=== PATIENT | female | born 1945 | race Caucasian/White ===

== ENCOUNTER 2020-11-27 14:07 | Emergency (ER) | payer MEDICARE ==
[~2020-11-27] VITALS: Ht 167.6 cm; Wt 61.2 kg
--- NOTE | 2020-11-27 14:18 | NUR ---
anny, from [facility], c/o BUE and BLE edema, warm to touch x 2 days. Patient a/ox1, confused, easily agitated. 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
--- NOTE | 2020-11-27 14:30 | NUR ---
DR. CLARKE AT BEDSIDE FOR EVAL
[2020-11-27] MEDS ORDERED: ATOR10TA PO (14:49)
[2020-11-27] MEDS ORDERED: MIDO5TAB4 PO (14:49)
[2020-11-27] MEDS ORDERED: LACT-239 PO (14:49)
[2020-11-27] MEDS ORDERED: ESOM20CA PO (14:49)
[2020-11-27] MEDS ORDERED: MAG30ORA PO (14:49)
[2020-11-27] MEDS ORDERED: DOCU-141 PO (14:49)
[2020-11-27] MEDS ORDERED: MIRT7.5T10 PO (14:49)
[2020-11-27] MEDS ORDERED: MULT-447 PO (14:49)
[2020-11-27] MEDS ORDERED: SULF1TAB48 PO (14:49)
[2020-11-27] MEDS ORDERED: ACID1TAB14 PO (14:49)
[2020-11-27] MEDS ORDERED: LOPE2CAP PO (14:49)
[2020-11-27] MEDS ORDERED: MAGN400O6 PO (14:49)
[2020-11-27] MEDS ORDERED: CHOL100062 PO (14:49)
--- NOTE | 2020-11-27 14:59 | NUR ---
iv line established, blood drawn and sent to lab.
--- NOTE | 2020-11-27 15:00 | NUR ---
graduate intern at bedside for cxr.
[2020-11-27 15:08] LABS: BASOPHILS % (AUTO) 0.1 % (0.0-2.0); EOSINOPHILS % (AUTO) 0.1 % (0.0-6.0); HEMATOCRIT 29 % (33-45); HEMOGLOBIN 9.6 g/dL (11.5-14.8); LYMPHOCYTES # (AUTO) 0.9 /CMM (0.8-4.8); LYMPHOCYTES % (AUTO) 7.9 % (20.0-44.0); MEAN CORPUSCULAR HGB CONC 33 g/dl (31.0-36.0); MEAN CORPUSCULAR VOLUME 94 fL (82-100); MONOCYTES # (AUTO) 1.4 /CMM (0.1-1.30); MONOCYTES % (AUTO) 11.9 % (2.0-12.0); NEUTROPHILS # (AUTO) 9.1 /CMM (1.8-8.9); PLATELET COUNT (AUTO) 372 /CMM (150-450); RED BLOOD CELL COUNT(AUTO) 3.09 MIL/uL (4.0-5.2); WHITE BLOOD COUNT (AUTO) 11.4 K/uL (4.3-11.0)
[2020-11-27 15:19] LABS: CALCIUM, SERUM 8.9 mg/dL (8.5-10.1); CREATININE 0.7 mg/dL (0.6-1.3); POTASSIUM 4.1 mmol/L (3.5-5.1)
[2020-11-27 15:24] LABS: ALBUMIN 2.4 g/dL (3.4-5.0); BILIRUBIN,DIRECT 0.1 mg/dL (0.0-0.2); BILIRUBIN,TOTAL 0.3 mg/dL (0.2-1.0); TOTAL PROTEIN, SERUM 6.6 g/dL (6.4-8.2)
[2020-11-27] MEDS ORDERED: IV NS 0.9% 500 ML BAG IV ONE (15:30)
[2020-11-27] MEDS ORDERED: CEPH250C PO (15:42)
[2020-11-27] MEDS ORDERED: CEPHALEXIN MONOHYDRATE 500 MG CAPSULE PO ONE ×2 (15:45→16:00)
[2020-11-27 15:50] VITALS: BP 135/87
--- NOTE | 2020-11-27 15:52 | NUR ---
CALLED [facility] FOR TRANSPORT TO [facility] [place] 45 MINUTES.
--- NOTE | 2020-11-27 16:07 | NUR ---
REPORT GIVEN TO IVORY LANCE FOR [facility].
--- NOTE | 2020-11-27 17:11 | NUR ---
REPORT GIVEN TO MANAGER SWITCH. PATIENT A/OX1, CONFUSED. IN STABLE CONDITION. IV removed. Catheter intact and site benign. Pressure and 4x4 applied to site. No bleeding noted. Patient discharged to home in stable condition. Written and verbal after care instructions given. Patient verbalizes understanding of instruction.
--- NOTE | 2020-11-27 17:13 | NUR ---
[facility]
== END 2020-11-27 17:13 ==
LOC: ER 14:12
DX: L03.114 Cellulitis of left upper limb (principal); L03.113 Cellulitis of right upper limb; E86.0 Dehydration; D64.9 Anemia, unspecified; F03.90 Unspecified dementia, unspecified severity, without behavioral disturbance, psychotic disturbance, mood disturbance, and anxiety; E78.5 Hyperlipidemia, unspecified; R94.31 Abnormal electrocardiogram [ECG] [EKG]; Z79.899 Other long term (current) drug therapy
CPT/HCPCS: 36415; 71045; 80048; 80076; 83690; 85025; 93005; 99285; J7040

== ENCOUNTER → 2022-05-16 | Emergency (ER) | payer MEDICARE ==
[~2022-05-16] VITALS: Ht 170.2 cm; Wt 63.5 kg
[~2022-05-16] MED LIST: ACID1TAB14 PO; ATOR10TA PO; CEPH250C PO; CHOL100062 PO; DOCU-141 PO; ESOM20CA PO; LACT-239 PO; LOPE2CAP PO; MAG30ORA PO; MAGN400O6 PO; MIDO5TAB4 PO; MIRT7.5T10 PO; MULT-447 PO; SULF1TAB48 PO
--- NOTE | 2022-05-16 07:05 | NUR ---
Recived pt 76 yrs female came from [facility]/p [facility] C/P PAIN ON rt knee no swalleing
--- NOTE | 2022-05-16 08:57 | NUR ---
x ray done at bed side
--- NOTE | 2022-05-16 09:00 | NUR ---
RESTING AND ASLEEPY
--- NOTE | 2022-05-16 10:00 | NUR ---
RESTING AT THIS TIME NO PAIN
--- NOTE | 2022-05-16 11:02 | NUR ---
[facility] CALLED FOR TRANSPORT ETA 60 PER SHEELA.
--- NOTE | 2022-05-16 11:35 | NUR ---
Patient discharged to home in stable condition. Written and verbal after care instructions given. Patient verbalizes understanding of instruction. TRANSFER BACK TO [facility]
[2022-05-16 11:56] VITALS: BP 147/75
== END ==
LOC: ER 07:07
DX: S80.01XA Contusion of right knee, initial encounter (principal); S90.01XA Contusion of right ankle, initial encounter; R51.9 Headache, unspecified; M19.90 Unspecified osteoarthritis, unspecified site; Z86.69 Personal history of other diseases of the nervous system and sense organs; Z79.899 Other long term (current) drug therapy; W06.XXXA Fall from bed, initial encounter; Y93.89 Activity, other specified; Y92.89 Other specified places as the place of occurrence of the external cause; Y99.8 Other external cause status
CPT/HCPCS: 70450-TC; 73564-TC; 73610-TC

== ENCOUNTER 2023-02-02 15:46 | Inpatient (IN) | payer MEDICARE ==
[~2023-02-02] VITALS: Ht 170.2 cm; Wt 59.0 kg
[2023-02-02] MEDS ORDERED: IV NS 0.9% 1,000 ML BAG IV ONE (16:30)
[2023-02-02 16:54] LABS: BASOPHILS % (AUTO) 0.3 % (0.0-2.0); EOSINOPHILS # (AUTO) 0.1 K/uL (0.0-0.7); EOSINOPHILS % (AUTO) 1.1 % (0.0-6.0); HEMATOCRIT 38 % (33-45); HEMOGLOBIN 12.6 g/dL (11.5-14.8); LYMPHOCYTES # (AUTO) 1.6 K/uL (0.8-4.8); LYMPHOCYTES % (AUTO) 19.7 % (20.0-44.0); MEAN CORPUSCULAR HEMOGLOBIN 30 PG (26.0-33.0); MEAN CORPUSCULAR HGB CONC 33 g/dl (31.0-36.0); MEAN CORPUSCULAR VOLUME 91 fL (82-100); MONOCYTES # (AUTO) 0.7 K/uL (0.1-1.30); MONOCYTES % (AUTO) 8.3 % (2.0-12.0); NEUTROPHILS # (AUTO) 5.6 K/uL (1.8-8.9); NEUTROPHILS % (AUTO) 70.6 % (43.0-81.0); PLATELET COUNT (AUTO) 231 K/uL (150-450); RED BLOOD CELL COUNT(AUTO) 4.18 MIL/uL (4.0-5.2); RED CELL DISTRIBUTION WIDTH 15.1 % (11.5-15.0)
[2023-02-02] MEDS ORDERED: CHOL200010 PO (17:07)
[2023-02-02] MEDS ORDERED: MENT113O4 TP (17:07)
[2023-02-02] MEDS ORDERED: MIRT-90 PO (17:07)
[2023-02-02] MEDS ORDERED: DOCU50LI PO (17:07)
[2023-02-02] MEDS ORDERED: MULT-1275 PO (17:07)
[2023-02-02] MEDS ORDERED: MAGN400O6 PO (17:07)
[2023-02-02] MEDS ORDERED: [UNRECOGNIZED DRUG - OTHER] PO (17:07)
[2023-02-02] MEDS ORDERED: ASCO-340 PO (17:07)
[2023-02-02] MEDS ORDERED: QUET25TA PO (17:07)
[2023-02-02] MEDS ORDERED: ACET-868 PO (17:07)
[2023-02-02] MEDS ORDERED: QUET50TA PO (17:07)
[2023-02-02] MEDS ORDERED: ESOM20CA37 PO (17:07)
[2023-02-02] MEDS ORDERED: LACT-47 PO (17:07)
[2023-02-02] MEDS ORDERED: ATOR10TA PO (17:07)
[2023-02-02 17:11] LABS: MAGNESIUM 1.9 mg/dL (1.8-2.4); PHOSPHORUS 3.5 mg/dL (2.5-4.9)
[2023-02-02 17:12] LABS: CALCIUM, SERUM 8.7 mg/dL (8.5-10.1); CREATININE 0.7 mg/dL (0.6-1.3); POTASSIUM 4.2 mmol/L (3.5-5.1)
[2023-02-02 19:06] LABS: APPEARANCE,URINE CLEAR (CLEAR); BILIRUBIN,URINE NEGATIVE (NEGATIVE); BLOOD, URINE TRACE-INTA Ery/uL (NEGATIVE); COLOR,URINE YELLOW (YELLOW); KETONES,URINE NEGATIVE (NEGATIVE); LEUKOCYTE ESTERASE ,URINE NEGATIVE (NEGATIVE); NITRITE, URINE NEGATIVE (NEGATIVE); PROTEIN,URINE NEGATIVE (NEGATIVE); UGLUCOSE NEGATIVE (NEGATIVE)
[2023-02-02 19:13] LABS: ADD URINE CULTURE YES; BACTERIA,URINE 4+ /HPF (None Seen); WBC,URINE 0-2 /HPF (0-3)
[2023-02-02 21:00] VITALS: BP 106/69; TEMP 98.2; O2SAT 98
[2023-02-02] MEDS: QUETIAPINE FUMARATE 25 MG TABLET PO SCH (22:18)
[2023-02-02] MEDS: IV NS 0.9% 1,000 ML IV PRN (22:29)
[2023-02-02] MEDS ORDERED: ACETAMINOPHEN 325 MG TABLET PO PRN (22:30)
[2023-02-02] MEDS ORDERED: ZOLPIDEM TARTRATE 5 MG TABLET PO PRN (22:30)
[2023-02-02] MEDS ORDERED: MAG HYDROX/AL HYDROX/SIMETH 30 ML UDC PO PRN (22:30)
[2023-02-02] MEDS ORDERED: CEFTRIAXONE 1 G in IV D5W 50 ML IV SCH (22:30)
[2023-02-02] MEDS ORDERED: Z GUARD REMEDY 4 OZ OINT TP PRN (22:30)
[2023-02-02] MEDS ORDERED: MAGNESIUM HYDROXIDE 30 ML UDC PO PRN ×2 (22:30)
[2023-02-02] MEDS ORDERED: ONDANSETRON HCL/PF 4 MG/2 ML VIAL IVP PRN (22:30)
[2023-02-02] MEDS ORDERED: AZITHROMYCIN 500 MG in IV D5W 250 ML IV SCH (22:30)
[2023-02-02] MEDS ORDERED: CEFTRIAXONE 1GM BAG (ER ONLY) 50 ML IV ONE (22:42)
[2023-02-02] MEDS ORDERED: AZITHROMYCIN 500 MG VIAL ONE (23:22)
[2023-02-03 06:32] LABS: BASOPHILS % (AUTO) 0.5 % (0.0-2.0); EOSINOPHILS # (AUTO) 0.1 K/uL (0.0-0.7); EOSINOPHILS % (AUTO) 2.4 % (0.0-6.0); HEMATOCRIT 33 % (33-45); LYMPHOCYTES # (AUTO) 1.6 K/uL (0.8-4.8); LYMPHOCYTES % (AUTO) 29.5 % (20.0-44.0); MEAN CORPUSCULAR HEMOGLOBIN 31 PG (26.0-33.0); MEAN CORPUSCULAR HGB CONC 34 g/dl (31.0-36.0); MEAN CORPUSCULAR VOLUME 92 fL (82-100); MONOCYTES # (AUTO) 0.5 K/uL (0.1-1.30); MONOCYTES % (AUTO) 9.1 % (2.0-12.0); NEUTROPHILS # (AUTO) 3.3 K/uL (1.8-8.9); NEUTROPHILS % (AUTO) 58.5 % (43.0-81.0); PLATELET COUNT (AUTO) 175 K/uL (150-450); RED BLOOD CELL COUNT(AUTO) 3.56 MIL/uL (4.0-5.2); RED CELL DISTRIBUTION WIDTH 14.9 % (11.5-15.0); WHITE BLOOD COUNT (AUTO) 5.6 K/uL (4.3-11.0)
[2023-02-03 06:45] LABS: ALANINE AMINOTRANSFERASE 14 U/L (12-78); ALBUMIN 2.4 g/dL (3.4-5.0); ALKALINE PHOSPHATASE 149 U/L (46-116); ASPARTATE AMINOTRANSFERASE 15 U/L (15-37); BILIRUBIN,TOTAL 0.2 mg/dL (0.2-1.0); CALCIUM, SERUM 8.2 mg/dL (8.5-10.1); CARBON DIOXIDE 26 mmol/L (21-32); CHLORIDE 107 mmol/L (98-107); CREATININE 0.5 mg/dL (0.6-1.3); GLUCOSE 88 mg/dL (74-106); MAGNESIUM 1.8 mg/dL (1.8-2.4); PHOSPHORUS 3.2 mg/dL (2.5-4.9); POTASSIUM 3.6 mmol/L (3.5-5.1); SODIUM SERUM 140 mmol/L (136-145); TOTAL PROTEIN, SERUM 5.2 g/dL (6.4-8.2); UREA NITROGEN, BLOOD 18 mg/dL (7-18)
[2023-02-03] MEDS: PANTOPRAZOLE 40 MG TABLET.DR PO SCH (07:45)
[2023-02-03 08:00] VITALS: BP 136/81; TEMP 97.5; O2SAT 99
[2023-02-03] MEDS: ENSURE CLEAR 237 ML LIQUID (MIX BERRY) PO SCH ×3 (09:00→16:59)
[2023-02-03] MEDS: CHOLECALCIFEROL 1,000 UNIT TABLET (VIT D3) PO SCH (09:13)
[2023-02-03] MEDS: ASCORBIC ACID 500 MG TABLET PO SCH (09:13)
[2023-02-03] MEDS: QUETIAPINE FUMARATE 25 MG TABLET PO SCH ×3 (09:14→21:04)
[2023-02-03] MEDS: MULTIVITAMINS,THERAGRAN 1 UDTAB TABLET PO SCH (09:14)
[2023-02-03] MEDS: DOCUSATE SODIUM LIQ 100 MG/10 ML UDC PO SCH ×2 (09:23→16:42)
[2023-02-03] MEDS: IV NS 0.9% 1,000 ML IV PRN ×2 (11:37→22:19)
[2023-02-03 16:00] VITALS: BP 146/79; TEMP 97.9; O2SAT 94
[2023-02-03 20:00] VITALS: BP 97/58; TEMP 97.3; O2SAT 95
[2023-02-03] MEDS: MIRTAZAPINE 15 MG TABLET PO SCH (21:04)
[2023-02-03] MEDS: ATORVASTATIN 10 MG TABLET PO SCH (21:04)
[2023-02-03] MEDS ORDERED: AZITHROMYCIN 250 MG TABLET PO SCH (23:00)
[2023-02-03] MEDS ORDERED: CEFTRIAXONE 1 G in IV D5W 50 ML IV SCH (23:00)
[2023-02-04 05:51] LABS: BASOPHILS % (AUTO) 0.2 % (0.0-2.0); EOSINOPHILS # (AUTO) 0.1 K/uL (0.0-0.7); EOSINOPHILS % (AUTO) 1.2 % (0.0-6.0); HEMATOCRIT 34 % (33-45); HEMOGLOBIN 11.1 g/dL (11.5-14.8); LYMPHOCYTES # (AUTO) 1.8 K/uL (0.8-4.8); LYMPHOCYTES % (AUTO) 28.5 % (20.0-44.0); MEAN CORPUSCULAR HEMOGLOBIN 30 PG (26.0-33.0); MEAN CORPUSCULAR HGB CONC 33 g/dl (31.0-36.0); MEAN CORPUSCULAR VOLUME 93 fL (82-100); MONOCYTES # (AUTO) 0.5 K/uL (0.1-1.30); MONOCYTES % (AUTO) 7.7 % (2.0-12.0); NEUTROPHILS # (AUTO) 3.9 K/uL (1.8-8.9); NEUTROPHILS % (AUTO) 62.4 % (43.0-81.0); PLATELET COUNT (AUTO) 180 K/uL (150-450); RED BLOOD CELL COUNT(AUTO) 3.63 MIL/uL (4.0-5.2); WHITE BLOOD COUNT (AUTO) 6.3 K/uL (4.3-11.0)
[2023-02-04 06:15] LABS: CALCIUM, SERUM 8.5 mg/dL (8.5-10.1); CREATININE 0.6 mg/dL (0.6-1.3); POTASSIUM 3.4 mmol/L (3.5-5.1)
[2023-02-04 07:00] VITALS: BP 130/74; TEMP 98; O2SAT 98
[2023-02-04] MEDS: PANTOPRAZOLE 40 MG TABLET.DR PO SCH (08:30)
[2023-02-04] MEDS: DOCUSATE SODIUM LIQ 100 MG/10 ML UDC PO SCH ×2 (08:34→17:26)
[2023-02-04] MEDS: MULTIVITAMINS,THERAGRAN 1 UDTAB TABLET PO SCH (08:36)
[2023-02-04] MEDS: QUETIAPINE FUMARATE 25 MG TABLET PO SCH ×3 (08:36→21:02)
[2023-02-04] MEDS: ASCORBIC ACID 500 MG TABLET PO SCH (08:37)
[2023-02-04] MEDS: CHOLECALCIFEROL 1,000 UNIT TABLET (VIT D3) PO SCH (08:37)
[2023-02-04] MEDS: ENSURE CLEAR 237 ML LIQUID (MIX BERRY) PO SCH ×3 (08:40→17:13)
[2023-02-04] MEDS: IV NS 0.9% 1,000 ML IV PRN ×2 (09:22→20:59)
[2023-02-04] MEDS ORDERED: POTASSIUM CHLORIDE 20 MEQ TAB.PRT.SR PO ONE (10:00)
[2023-02-04 16:00] VITALS: BP 134/81; TEMP 98.9; O2SAT 95
[2023-02-04 19:00] VITALS: BP_SYST 112; BP_SYST 131; BP_DIAS 67; BP_DIAS 84; TEMP 98.9; O2SAT 94; O2SAT 98
[2023-02-04] MEDS: ATORVASTATIN 10 MG TABLET PO SCH (21:02)
[2023-02-04] MEDS: MIRTAZAPINE 15 MG TABLET PO SCH (21:02)
[2023-02-05 06:39] LABS: BASOPHILS % (AUTO) 0.4 % (0.0-2.0); EOSINOPHILS # (AUTO) 0.1 K/uL (0.0-0.7); EOSINOPHILS % (AUTO) 1.7 % (0.0-6.0); HEMATOCRIT 36 % (33-45); MEAN CORPUSCULAR HEMOGLOBIN 31 PG (26.0-33.0); MEAN CORPUSCULAR HGB CONC 34 g/dl (31.0-36.0); MEAN CORPUSCULAR VOLUME 91 fL (82-100); MONOCYTES # (AUTO) 0.6 K/uL (0.1-1.30); MONOCYTES % (AUTO) 9.2 % (2.0-12.0); NEUTROPHILS # (AUTO) 4.3 K/uL (1.8-8.9); NEUTROPHILS % (AUTO) 60.7 % (43.0-81.0); PLATELET COUNT (AUTO) 180 K/uL (150-450); RED BLOOD CELL COUNT(AUTO) 3.92 MIL/uL (4.0-5.2); RED CELL DISTRIBUTION WIDTH 14.7 % (11.5-15.0)
[2023-02-05 06:54] LABS: CALCIUM, SERUM 8.8 mg/dL (8.5-10.1); CREATININE 0.6 mg/dL (0.6-1.3); POTASSIUM 3.9 mmol/L (3.5-5.1)
[2023-02-05] MEDS: PANTOPRAZOLE 40 MG TABLET.DR PO SCH (08:01)
[2023-02-05 08:22] VITALS: BP 134/94; TEMP 98.1; O2SAT 97
[2023-02-05] MEDS: ASCORBIC ACID 500 MG TABLET PO SCH (08:43)
[2023-02-05] MEDS: MULTIVITAMINS,THERAGRAN 1 UDTAB TABLET PO SCH (08:43)
[2023-02-05] MEDS: CHOLECALCIFEROL 1,000 UNIT TABLET (VIT D3) PO SCH (08:44)
[2023-02-05] MEDS: QUETIAPINE FUMARATE 25 MG TABLET PO SCH (08:44)
[2023-02-05] MEDS: DOCUSATE SODIUM LIQ 100 MG/10 ML UDC PO SCH (08:45)
[2023-02-05] MEDS: ENSURE CLEAR 237 ML LIQUID (MIX BERRY) PO SCH ×2 (09:13→13:10)
== END 2023-02-05 14:32 | DRG 640 ==
LOC: ER 15:58 → TELE 20:19 → MED 21:00
PROVIDERS: ADMIT Nurse Practitioner Acute Care; ATTEND Internal Medicine
DX: R62.7 Adult failure to thrive (principal); G93.41 Metabolic encephalopathy; N17.0 Acute kidney failure with tubular necrosis; D68.59 Other primary thrombophilia; F02.83 Dementia in other diseases classified elsewhere, unspecified severity, with mood disturbance; F02.818 Dementia in other diseases classified elsewhere, unspecified severity, with other behavioral disturbance; J98.11 Atelectasis; R13.10 Dysphagia, unspecified; K21.9 Gastro-esophageal reflux disease without esophagitis; Z20.822 Contact with and (suspected) exposure to COVID-19; G30.9 Alzheimer's disease, unspecified; M19.90 Unspecified osteoarthritis, unspecified site; M50.322 Other cervical disc degeneration at C5-C6 level; Z79.899 Other long term (current) drug therapy; E78.5 Hyperlipidemia, unspecified; F32.A Depression, unspecified; Z74.09 Other reduced mobility; N18.9 Chronic kidney disease, unspecified
CPT/HCPCS: 36415; 70450-TC; 71045-TC; 80048-TC; 80053-TC; 81001; 83735-TC; 84100-TC; 85025-TC; 87081-TC; 87086-TC; 92526; 92611-TC; 97110-TC; 97112-TC; A4223; G0378; J0456; J0696; J7030; J7060

== ENCOUNTER 2023-05-18 17:50 | Inpatient (IN) | payer MEDICARE ==
[~2023-05-18] VITALS: Ht 167.6 cm; Wt 51.1 kg
[~2023-05-18 17:50] MED LIST changes: +ACET-868 PO; -ACID1TAB14 PO; +ASCO-340 PO; -CEPH250C PO; -CHOL100062 PO; +CHOL200010 PO; -DOCU-141 PO; +DOCU50LI PO; -ESOM20CA PO; +ESOM20CA37 PO; -LACT-239 PO; +LACT-47 PO; -LOPE2CAP PO; -MAG30ORA PO; +MENT113O4 TP; -MIDO5TAB4 PO; +MIRT-90 PO; -MIRT7.5T10 PO; +MULT-1275 PO; -MULT-447 PO; +QUET25TA PO; +QUET50TA PO; -SULF1TAB48 PO; +[UNRECOGNIZED DRUG - OTHER] PO
[2023-05-18] MEDS ORDERED: IV NS 0.9% 500 ML IV ONE (19:30)
[2023-05-18 19:54] LABS: BASOPHILS % (AUTO) 0.5 % (0.0-2.0); EOSINOPHILS % (AUTO) 0.7 % (0.0-6.0); HEMATOCRIT 38 % (33-45); HEMOGLOBIN 12.5 g/dL (11.5-14.8); LYMPHOCYTES # (AUTO) 1.4 K/uL (0.8-4.8); LYMPHOCYTES % (AUTO) 23.7 % (20.0-44.0); MEAN CORPUSCULAR HEMOGLOBIN 31 PG (26.0-33.0); MEAN CORPUSCULAR HGB CONC 33 g/dl (31.0-36.0); MEAN CORPUSCULAR VOLUME 94 fL (82-100); MONOCYTES # (AUTO) 0.5 K/uL (0.1-1.30); MONOCYTES % (AUTO) 8.3 % (2.0-12.0); NEUTROPHILS % (AUTO) 66.8 % (43.0-81.0); PLATELET COUNT (AUTO) 155 K/uL (150-450); RED BLOOD CELL COUNT(AUTO) 4.07 MIL/uL (4.0-5.2); RED CELL DISTRIBUTION WIDTH 17.3 % (11.5-15.0)
[2023-05-18 19:59] LABS: CALCIUM, SERUM 9.3 mg/dL (8.5-10.1); CARBON DIOXIDE 28 mmol/L (21-32); CHLORIDE 109 mmol/L (98-107); CREATININE 1.2 mg/dL (0.6-1.3); GLUCOSE 86 mg/dL (74-106); POTASSIUM 4.8 mmol/L (3.5-5.1); SODIUM SERUM 141 mmol/L (136-145); UREA NITROGEN, BLOOD 28 mg/dL (7-18)
[2023-05-18 20:04] LABS: ALANINE AMINOTRANSFERASE 50 U/L (12-78); ALBUMIN 2.9 g/dL (3.4-5.0); ALKALINE PHOSPHATASE 178 U/L (46-116); ASPARTATE AMINOTRANSFERASE 39 U/L (15-37); BILIRUBIN,DIRECT 0.1 mg/dL (0.0-0.2); BILIRUBIN,TOTAL 0.3 mg/dL (0.2-1.0)
[2023-05-18] MEDS ORDERED: ASPIRIN 300 MG/SUPP.RECT RC ONE ×2 (20:30→20:54)
[2023-05-18 21:00] LABS: APPEARANCE,URINE SLIGHTLY CLOUDY (CLEAR); COLOR,URINE YELLOW (YELLOW)
[2023-05-18 21:01] LABS: PROTEIN,URINE TRACE mg/dl (NEGATIVE); UGLUCOSE NEGATIVE (NEGATIVE)
[2023-05-18 21:02] LABS: BILIRUBIN,URINE NEGATIVE (NEGATIVE); BLOOD, URINE NEGATIVE Ery/uL (NEGATIVE); KETONES,URINE NEGATIVE (NEGATIVE); LEUKOCYTE ESTERASE ,URINE NEGATIVE (NEGATIVE); NITRITE, URINE NEGATIVE (NEGATIVE); UROBILINOGEN,URINE 0.2 EU/dL (0.2)
[2023-05-18 22:12] VITALS: BP 102/81; TEMP 97.7; O2SAT 96
[2023-05-18 22:19] LABS: ADD URINE CULTURE NO; BACTERIA,URINE Rare /HPF (None Seen); RBC,URINE 0-2 /HPF (0-2); SQUAMOUS EPITHELIAL CELL,UR Rare /HPF (None Seen); WBC,URINE 0-2 /HPF (0-3)
[2023-05-18] MEDS ORDERED: MAGNESIUM HYDROXIDE 30 ML UDC PO PRN (23:30)
[2023-05-18] MEDS ORDERED: ONDANSETRON HCL/PF 4 MG/2 ML VIAL IVP PRN (23:30)
[2023-05-18] MEDS ORDERED: ACETAMINOPHEN 325 MG TABLET PO PRN (23:30)
[2023-05-19] MEDS: IV 1/2NS 1000 ML 1,000 ML IV PRN ×2 (00:56→12:03)
[2023-05-19] MEDS: ENOXAPARIN SODIUM 60 MG/0.6 ML DISP.SYRIN SQ SCH ×3 (01:57→21:00)
[2023-05-19 04:00] VITALS: BP 96/65; TEMP 97.8; O2SAT 97
[2023-05-19 07:00] VITALS: BP 103/84; TEMP 97.6; O2SAT 99
[2023-05-19 07:21] LABS: BASOPHILS % (AUTO) 0.5 % (0.0-2.0); EOSINOPHILS # (AUTO) 0.1 K/uL (0.0-0.7); MEAN CORPUSCULAR VOLUME 95 fL (82-100); MONOCYTES # (AUTO) 0.5 K/uL (0.1-1.30); NEUTROPHILS # (AUTO) 2.8 K/uL (1.8-8.9); RED CELL DISTRIBUTION WIDTH 17.3 % (11.5-15.0)
[2023-05-19 07:28] LABS: EOSINOPHILS % (AUTO) 1.4 % (0.0-6.0); HEMATOCRIT 38 % (33-45); HEMOGLOBIN 12.4 g/dL (11.5-14.8); LYMPHOCYTES % (AUTO) 37.1 % (20.0-44.0); MEAN CORPUSCULAR HEMOGLOBIN 31 PG (26.0-33.0); MEAN CORPUSCULAR HGB CONC 33 g/dl (31.0-36.0); MONOCYTES % (AUTO) 8.4 % (2.0-12.0); NEUTROPHILS % (AUTO) 52.6 % (43.0-81.0); PLATELET COUNT (AUTO) 125 K/uL (150-450); RED BLOOD CELL COUNT(AUTO) 3.96 MIL/uL (4.0-5.2); WHITE BLOOD COUNT (AUTO) 5.4 K/uL (4.3-11.0)
[2023-05-19] MEDS ORDERED: PANTOPRAZOLE 40 MG TABLET.DR PO SCH (07:30)
[2023-05-19 07:46] LABS: CALCIUM, SERUM 8.7 mg/dL (8.5-10.1); CREATININE 0.8 mg/dL (0.6-1.3); MAGNESIUM 2.3 mg/dL (1.8-2.4); PHOSPHORUS 4.2 mg/dL (2.5-4.9); POTASSIUM 4.6 mmol/L (3.5-5.1)
[2023-05-19] MEDS ORDERED: OMEP20CA15 PO (08:10)
[2023-05-19] MEDS ORDERED: CALC-481 PO (08:10)
[2023-05-19] MEDS ORDERED: QUET25TA PO (08:10)
[2023-05-19] MEDS ORDERED: MAG-151 PO (08:10)
[2023-05-19] MEDS ORDERED: ASPIRIN 81 MG TAB.CHEW PO SCH (09:00)
[2023-05-19] MEDS ORDERED: AMIODARONE 450 MG in IV D5W 250 ML IV PRN (11:00)
[2023-05-19] MEDS: AMIODARONE 150 MG in IV D5W 100 ML IV ONE ×2 (11:00→17:55)
[2023-05-19 12:00] VITALS: BP 136/84; TEMP 97.6; O2SAT 99
[2023-05-19] MEDS: Z GUARD REMEDY 4 OZ OINT TP PRN (13:02)
[2023-05-19] MEDS: Z GUARD REMEDY 4 OZ OINT TP SCH ×2 (13:03→16:18)
[2023-05-19 16:00] VITALS: BP 111/74; TEMP 97; O2SAT 92
[2023-05-19] MEDS ORDERED: ENSURE CLEAR 237 ML LIQUID (MIX BERRY) PO SCH (17:00)
[2023-05-19] MEDS: ENSURE CLEAR 237 ML LIQUID (MIX BERRY) PO SCH (17:27)
[2023-05-19] MEDS: AMIODARONE 450 MG in IV D5W 241 ML IV PRN (18:19)
[2023-05-19] MEDS: MIRTAZAPINE 15 MG TABLET PO SCH (22:46)
[2023-05-19] MEDS: QUETIAPINE FUMARATE 25 MG TABLET PO SCH (22:46)
[2023-05-19] MEDS: ATORVASTATIN 10 MG TABLET PO SCH (22:47)
[2023-05-20] MEDS: IV 1/2NS 1000 ML 1,000 ML IV PRN ×2 (00:05→14:47)
[2023-05-20] MEDS: AMIODARONE 450 MG in IV D5W 241 ML IV PRN (00:20)
[2023-05-20 06:41] LABS: BASOPHILS % (AUTO) 0.3 % (0.0-2.0); EOSINOPHILS % (AUTO) 0.6 % (0.0-6.0); HEMATOCRIT 35 % (33-45); HEMOGLOBIN 11.9 g/dL (11.5-14.8); LYMPHOCYTES # (AUTO) 1.1 K/uL (0.8-4.8); LYMPHOCYTES % (AUTO) 20.5 % (20.0-44.0); MEAN CORPUSCULAR HEMOGLOBIN 31 PG (26.0-33.0); MEAN CORPUSCULAR HGB CONC 34 g/dl (31.0-36.0); MEAN CORPUSCULAR VOLUME 92 fL (82-100); MONOCYTES # (AUTO) 0.4 K/uL (0.1-1.30); MONOCYTES % (AUTO) 8.2 % (2.0-12.0); NEUTROPHILS # (AUTO) 3.7 K/uL (1.8-8.9); NEUTROPHILS % (AUTO) 70.4 % (43.0-81.0); PLATELET COUNT (AUTO) 121 K/uL (150-450); RED BLOOD CELL COUNT(AUTO) 3.84 MIL/uL (4.0-5.2); RED CELL DISTRIBUTION WIDTH 17.2 % (11.5-15.0); WHITE BLOOD COUNT (AUTO) 5.3 K/uL (4.3-11.0)
[2023-05-20 07:03] LABS: ALBUMIN 2.6 g/dL (3.4-5.0); BILIRUBIN,TOTAL 0.3 mg/dL (0.2-1.0); CALCIUM, SERUM 8.6 mg/dL (8.5-10.1); CREATININE 0.6 mg/dL (0.6-1.3); MAGNESIUM 2.1 mg/dL (1.8-2.4); POTASSIUM 4.4 mmol/L (3.5-5.1); TOTAL PROTEIN, SERUM 5.5 g/dL (6.4-8.2)
[2023-05-20] MEDS: PANTOPRAZOLE 40 MG/PACK PACK PO SCH (08:10)
[2023-05-20] MEDS: ENOXAPARIN SODIUM 60 MG/0.6 ML DISP.SYRIN SQ SCH (08:14)
[2023-05-20] MEDS: Z GUARD REMEDY 4 OZ OINT TP SCH ×3 (08:17→17:15)
[2023-05-20] MEDS: ENSURE CLEAR 237 ML LIQUID (MIX BERRY) PO SCH ×2 (08:17→18:11)
[2023-05-20] MEDS: METOPROLOL TARTRATE 25 MG TABLET PO SCH ×2 (09:00→21:52)
[2023-05-20] MEDS ORDERED: OMEPRAZOLE 20 MG CAPSULE.DR PO SCH (09:00)
[2023-05-20 19:38] LABS: APPEARANCE,URINE CLEAR (CLEAR); BILIRUBIN,URINE NEGATIVE (NEGATIVE); BLOOD, URINE 1+ Ery/uL (NEGATIVE); COLOR,URINE YELLOW (YELLOW); KETONES,URINE NEGATIVE (NEGATIVE); LEUKOCYTE ESTERASE ,URINE 3+ (NEGATIVE); NITRITE, URINE POSITIVE (NEGATIVE); PROTEIN,URINE NEGATIVE (NEGATIVE); UGLUCOSE NEGATIVE (NEGATIVE); UROBILINOGEN,URINE 0.2 EU/dL (0.2)
[2023-05-20 19:41] LABS: ADD URINE CULTURE YES; BACTERIA,URINE 2+ /HPF (None Seen); SQUAMOUS EPITHELIAL CELL,UR None Seen /HPF (None Seen)
[2023-05-20 21:00] VITALS: BP 102/76; TEMP 98.8; O2SAT 95
[2023-05-20] MEDS: ATORVASTATIN 10 MG TABLET PO SCH (21:52)
[2023-05-20] MEDS: MIRTAZAPINE 15 MG TABLET PO SCH (21:52)
[2023-05-20] MEDS: QUETIAPINE FUMARATE 25 MG TABLET PO SCH (21:52)
[2023-05-20] MEDS: APIXABAN 5 MG TABLET PO SCH (21:54)
[2023-05-21] VITALS: BP 88/65; TEMP 97.3; O2SAT 97
[2023-05-21] MEDS ORDERED: CEFTRIAXONE 1 G in IV D5W 50 ML IV SCH (02:30)
[2023-05-21] MEDS ORDERED: CEFTRIAXONE 1GM BAG (ER ONLY) 50 ML IV ONE (02:34)
[2023-05-21] MEDS: IV 1/2NS 1000 ML 1,000 ML IV PRN (03:32)
[2023-05-21 04:00] VITALS: BP 103/71; TEMP 97.3; O2SAT 97
[2023-05-21 06:00] LABS: BASOPHILS % (AUTO) 0.3 % (0.0-2.0); EOSINOPHILS % (AUTO) 1.1 % (0.0-6.0); HEMATOCRIT 33 % (33-45); HEMOGLOBIN 11.2 g/dL (11.5-14.8); LYMPHOCYTES # (AUTO) 1.3 K/uL (0.8-4.8); LYMPHOCYTES % (AUTO) 33.5 % (20.0-44.0); MEAN CORPUSCULAR HEMOGLOBIN 31 PG (26.0-33.0); MEAN CORPUSCULAR HGB CONC 34 g/dl (31.0-36.0); MEAN CORPUSCULAR VOLUME 92 fL (82-100); MONOCYTES # (AUTO) 0.3 K/uL (0.1-1.30); MONOCYTES % (AUTO) 8.7 % (2.0-12.0); NEUTROPHILS # (AUTO) 2.2 K/uL (1.8-8.9); NEUTROPHILS % (AUTO) 56.4 % (43.0-81.0); PLATELET COUNT (AUTO) 127 K/uL (150-450); RED BLOOD CELL COUNT(AUTO) 3.59 MIL/uL (4.0-5.2); RED CELL DISTRIBUTION WIDTH 17.4 % (11.5-15.0); WHITE BLOOD COUNT (AUTO) 3.8 K/uL (4.3-11.0)
[2023-05-21 06:05] LABS: ALBUMIN 2.3 g/dL (3.4-5.0); BILIRUBIN,TOTAL 0.2 mg/dL (0.2-1.0); CALCIUM, SERUM 8.4 mg/dL (8.5-10.1); CREATININE 0.7 mg/dL (0.6-1.3); MAGNESIUM 1.9 mg/dL (1.8-2.4); PHOSPHORUS 3.3 mg/dL (2.5-4.9); POTASSIUM 4.3 mmol/L (3.5-5.1); TOTAL PROTEIN, SERUM 5.1 g/dL (6.4-8.2)
[2023-05-21 08:00] VITALS: BP 121/75; TEMP 98.6; O2SAT 97
[2023-05-21] MEDS: PANTOPRAZOLE 40 MG/PACK PACK PO SCH (08:37)
[2023-05-21] MEDS: METOPROLOL TARTRATE 25 MG TABLET PO SCH ×2 (08:38→21:00)
[2023-05-21] MEDS: APIXABAN 5 MG TABLET PO SCH (08:38)
[2023-05-21] MEDS: ENSURE CLEAR 237 ML LIQUID (MIX BERRY) PO SCH ×2 (08:39→16:10)
[2023-05-21] MEDS: Z GUARD REMEDY 4 OZ OINT TP SCH ×3 (08:39→16:11)
[2023-05-21 12:00] VITALS: BP 135/75; TEMP 98.7; O2SAT 97
[2023-05-21 16:00] VITALS: BP 132/115; TEMP 97.4; O2SAT 95
[2023-05-21] MEDS ORDERED: VANCOMYCIN 1.25 GM in IV D5W 250 ML IV ONE (16:00)
[2023-05-21] MEDS ORDERED: IV D5/0.45 NACL 1,000 ML IV PRN (16:30)
[2023-05-21] MEDS ORDERED: IV D5/0.45 NACL 1,000 ML IV ONE (17:00)
[2023-05-21] MEDS: IV D5/0.45 NACL 1,000 ML IV PRN (17:56)
[2023-05-21 20:00] VITALS: BP 103/85; TEMP 97.5; O2SAT 95
[2023-05-21] MEDS: CEFEPIME 2 GM in IV D5W 100 ML IV SCH (21:39)
[2023-05-21] MEDS: MIRTAZAPINE 15 MG TABLET PO SCH ×2 (21:39→21:48)
[2023-05-21] MEDS: ATORVASTATIN 10 MG TABLET PO SCH ×2 (21:39→21:48)
[2023-05-21] MEDS: QUETIAPINE FUMARATE 25 MG TABLET PO SCH ×2 (21:39→21:48)
[2023-05-21] MEDS: ENOXAPARIN SODIUM 40 MG/0.4 ML DISP.SYRIN SQ SCH (21:41)
[2023-05-22] VITALS (7 sets, daily range): BP systolic 94–134; BP diastolic 58–97; TEMP 97.4–97.7; O2SAT 95–98
[2023-05-22] MEDS: VANCOMYCIN HCL 0.75 GM in IV D5W 250 ML IV SCH ×2 (04:11→15:34)
[2023-05-22] MEDS: CEFEPIME 2 GM in IV D5W 100 ML IV SCH ×3 (05:13→21:24)
[2023-05-22 07:17] LABS: BASOPHILS % (AUTO) 0.3 % (0.0-2.0); EOSINOPHILS % (AUTO) 0.6 % (0.0-6.0); HEMATOCRIT 35 % (33-45); HEMOGLOBIN 11.6 g/dL (11.5-14.8); LYMPHOCYTES # (AUTO) 1.2 K/uL (0.8-4.8); LYMPHOCYTES % (AUTO) 16.8 % (20.0-44.0); MEAN CORPUSCULAR HEMOGLOBIN 31 PG (26.0-33.0); MEAN CORPUSCULAR HGB CONC 34 g/dl (31.0-36.0); MEAN CORPUSCULAR VOLUME 93 fL (82-100); MONOCYTES # (AUTO) 0.6 K/uL (0.1-1.30); MONOCYTES % (AUTO) 7.6 % (2.0-12.0); NEUTROPHILS # (AUTO) 5.5 K/uL (1.8-8.9); NEUTROPHILS % (AUTO) 74.7 % (43.0-81.0); PLATELET COUNT (AUTO) 114 K/uL (150-450); RED BLOOD CELL COUNT(AUTO) 3.72 MIL/uL (4.0-5.2); RED CELL DISTRIBUTION WIDTH 17.4 % (11.5-15.0); WHITE BLOOD COUNT (AUTO) 7.4 K/uL (4.3-11.0)
[2023-05-22 07:40] LABS: ALBUMIN 2.4 g/dL (3.4-5.0); BILIRUBIN,TOTAL 0.3 mg/dL (0.2-1.0); CALCIUM, SERUM 8.6 mg/dL (8.5-10.1); CREATININE 0.7 mg/dL (0.6-1.3); PHOSPHORUS 3.4 mg/dL (2.5-4.9); POTASSIUM 3.7 mmol/L (3.5-5.1); TOTAL PROTEIN, SERUM 5.3 g/dL (6.4-8.2)
[2023-05-22] MEDS: Z GUARD REMEDY 4 OZ OINT TP SCH ×3 (08:21→16:05)
[2023-05-22] MEDS: ENSURE CLEAR 237 ML LIQUID (MIX BERRY) PO SCH ×2 (09:00→16:05)
[2023-05-22] MEDS: METOPROLOL TARTRATE 25 MG TABLET PO SCH ×2 (09:00→21:25)
[2023-05-22] MEDS: Z GUARD REMEDY 4 OZ OINT TP PRN (12:24)
[2023-05-22] MEDS: IV D5/0.45 NACL 1,000 ML IV PRN (15:35)
[2023-05-22] MEDS: ATORVASTATIN 10 MG TABLET PO SCH (21:25)
[2023-05-22] MEDS: MIRTAZAPINE 15 MG TABLET PO SCH (21:25)
[2023-05-22] MEDS: QUETIAPINE FUMARATE 25 MG TABLET PO SCH (21:25)
[2023-05-22] MEDS: ENOXAPARIN SODIUM 40 MG/0.4 ML DISP.SYRIN SQ SCH (21:27)
[2023-05-23] VITALS (8 sets, daily range): BP systolic 94–144; BP diastolic 55–87; TEMP 97.2–98.4; O2SAT 95–98
[2023-05-23] MEDS: VANCOMYCIN HCL 0.75 GM in IV D5W 250 ML IV SCH (04:00)
[2023-05-23] MEDS: CEFEPIME 2 GM in IV D5W 100 ML IV SCH ×3 (05:09→20:33)
[2023-05-23] MEDS: PANTOPRAZOLE 40 MG VIAL IV SCH (07:25)
[2023-05-23 07:26] LABS: BASOPHILS % (AUTO) 0.4 % (0.0-2.0); EOSINOPHILS # (AUTO) 0.1 K/uL (0.0-0.7); EOSINOPHILS % (AUTO) 1.3 % (0.0-6.0); HEMATOCRIT 32 % (33-45); HEMOGLOBIN 10.8 g/dL (11.5-14.8); LYMPHOCYTES # (AUTO) 1.2 K/uL (0.8-4.8); LYMPHOCYTES % (AUTO) 25.2 % (20.0-44.0); MEAN CORPUSCULAR HEMOGLOBIN 31 PG (26.0-33.0); MEAN CORPUSCULAR HGB CONC 34 g/dl (31.0-36.0); MEAN CORPUSCULAR VOLUME 93 fL (82-100); MONOCYTES # (AUTO) 0.5 K/uL (0.1-1.30); MONOCYTES % (AUTO) 10.5 % (2.0-12.0); NEUTROPHILS % (AUTO) 62.6 % (43.0-81.0); PLATELET COUNT (AUTO) 121 K/uL (150-450); RED BLOOD CELL COUNT(AUTO) 3.43 MIL/uL (4.0-5.2); RED CELL DISTRIBUTION WIDTH 17.5 % (11.5-15.0); WHITE BLOOD COUNT (AUTO) 4.8 K/uL (4.3-11.0)
[2023-05-23 07:49] LABS: CARBON DIOXIDE 26 mmol/L (21-32); CHLORIDE 111 mmol/L (98-107); CREATININE 0.9 mg/dL (0.6-1.3); GLUCOSE 98 mg/dL (74-106); MAGNESIUM 1.7 mg/dL (1.8-2.4); PHOSPHORUS 3.4 mg/dL (2.5-4.9); POTASSIUM 3.5 mmol/L (3.5-5.1); SODIUM SERUM 143 mmol/L (136-145); UREA NITROGEN, BLOOD 6 mg/dL (7-18)
[2023-05-23] MEDS: ENSURE CLEAR 237 ML LIQUID (MIX BERRY) PO SCH ×2 (09:30→16:38)
[2023-05-23] MEDS: Z GUARD REMEDY 4 OZ OINT TP SCH ×3 (09:31→16:38)
[2023-05-23] MEDS: DRONEDARONE HYDROCHLORIDE 400 MG TABLET PO SCH ×2 (09:31→16:37)
[2023-05-23] MEDS: METOPROLOL TARTRATE 25 MG TABLET PO SCH ×2 (09:31→21:13)
[2023-05-23] MEDS: Magnesium 1GM/D5W 100ML PREMIX 100 ML IV SCH ×2 (09:54→11:12)
[2023-05-23] MEDS: IV D5/0.45 NACL 1,000 ML IV PRN (11:12)
[2023-05-23] MEDS ORDERED: VANCOMYCIN HCL 0.75 GM in IV D5W 250 ML IV SCH (18:00)
[2023-05-23] MEDS: ENOXAPARIN SODIUM 40 MG/0.4 ML DISP.SYRIN SQ SCH (21:15)
[2023-05-23] MEDS: ATORVASTATIN 10 MG TABLET PO SCH (21:25)
[2023-05-23] MEDS: QUETIAPINE FUMARATE 25 MG TABLET PO SCH (21:25)
[2023-05-23] MEDS: MIRTAZAPINE 15 MG TABLET PO SCH (21:25)
[2023-05-24] VITALS (10 sets, daily range): BP systolic 98–138; BP diastolic 65–87; TEMP 96.3–98.4; O2SAT 96–100
[2023-05-24] MEDS: CEFEPIME 2 GM in IV D5W 100 ML IV SCH ×3 (04:15→21:13)
[2023-05-24 05:56] LABS: BASOPHILS % (AUTO) 0.6 % (0.0-2.0); EOSINOPHILS # (AUTO) 0.1 K/uL (0.0-0.7); EOSINOPHILS % (AUTO) 3.1 % (0.0-6.0); HEMATOCRIT 31 % (33-45); HEMOGLOBIN 10.5 g/dL (11.5-14.8); LYMPHOCYTES # (AUTO) 1.3 K/uL (0.8-4.8); LYMPHOCYTES % (AUTO) 36.6 % (20.0-44.0); MEAN CORPUSCULAR HEMOGLOBIN 31 PG (26.0-33.0); MEAN CORPUSCULAR HGB CONC 34 g/dl (31.0-36.0); MEAN CORPUSCULAR VOLUME 92 fL (82-100); MONOCYTES # (AUTO) 0.4 K/uL (0.1-1.30); MONOCYTES % (AUTO) 10.5 % (2.0-12.0); NEUTROPHILS # (AUTO) 1.8 K/uL (1.8-8.9); NEUTROPHILS % (AUTO) 49.2 % (43.0-81.0); PLATELET COUNT (AUTO) 105 K/uL (150-450); RED BLOOD CELL COUNT(AUTO) 3.38 MIL/uL (4.0-5.2); RED CELL DISTRIBUTION WIDTH 17.4 % (11.5-15.0); WHITE BLOOD COUNT (AUTO) 3.6 K/uL (4.3-11.0)
[2023-05-24 06:52] LABS: CALCIUM, SERUM 8.2 mg/dL (8.5-10.1); CREATININE 0.7 mg/dL (0.6-1.3); MAGNESIUM 2.3 mg/dL (1.8-2.4); PHOSPHORUS 3.5 mg/dL (2.5-4.9); POTASSIUM 3.3 mmol/L (3.5-5.1)
[2023-05-24] MEDS: METOPROLOL TARTRATE 25 MG TABLET PO SCH ×2 (09:00→21:17)
[2023-05-24] MEDS: DRONEDARONE HYDROCHLORIDE 400 MG TABLET PO SCH ×2 (09:08→16:44)
[2023-05-24] MEDS: PANTOPRAZOLE 40 MG VIAL IV SCH (09:11)
[2023-05-24] MEDS: ENSURE CLEAR 237 ML LIQUID (MIX BERRY) PO SCH ×2 (09:12→16:38)
[2023-05-24] MEDS: Z GUARD REMEDY 4 OZ OINT TP SCH ×3 (09:13→16:39)
[2023-05-24] MEDS ORDERED: POTASSIUM CHLORIDE 20 MEQ POWDER PACKET PO SCH (10:00)
[2023-05-24] MEDS ORDERED: IV D5/0.45 NACL 1,000 ML IV PRN (14:00)
[2023-05-24] MEDS: ALBUTEROL HALF STRENGTH 1.25 MG/3 ML VIAL.NEB NEB SCH ×2 (14:19→20:02)
[2023-05-24] MEDS: IPRATROPIUM NEB FS 0.5 MG/2.5 ML AMPUL.NEB NEB SCH ×2 (14:19→20:02)
[2023-05-24] MEDS: ATORVASTATIN 10 MG TABLET PO SCH (21:14)
[2023-05-24] MEDS: MIRTAZAPINE 15 MG TABLET PO SCH (21:14)
[2023-05-24] MEDS: ENOXAPARIN SODIUM 40 MG/0.4 ML DISP.SYRIN SQ SCH (21:14)
[2023-05-24] MEDS: QUETIAPINE FUMARATE 25 MG TABLET PO SCH (21:15)
[2023-05-25] VITALS (10 sets, daily range): BP systolic 107–126; BP diastolic 62–96; TEMP 96.3–97.6; O2SAT 95–100
[2023-05-25] MEDS: CEFEPIME 2 GM in IV D5W 100 ML IV SCH ×2 (04:39→21:06)
[2023-05-25 07:03] LABS: BASOPHILS % (AUTO) 0.1 % (0.0-2.0); EOSINOPHILS % (AUTO) 0.4 % (0.0-6.0); HEMATOCRIT 32 % (33-45); HEMOGLOBIN 10.9 g/dL (11.5-14.8); LYMPHOCYTES # (AUTO) 0.8 K/uL (0.8-4.8); LYMPHOCYTES % (AUTO) 7.9 % (20.0-44.0); MEAN CORPUSCULAR HEMOGLOBIN 32 PG (26.0-33.0); MEAN CORPUSCULAR HGB CONC 34 g/dl (31.0-36.0); MEAN CORPUSCULAR VOLUME 92 fL (82-100); MONOCYTES # (AUTO) 0.8 K/uL (0.1-1.30); MONOCYTES % (AUTO) 7.9 % (2.0-12.0); NEUTROPHILS % (AUTO) 83.7 % (43.0-81.0); PLATELET COUNT (AUTO) 112 K/uL (150-450); RED BLOOD CELL COUNT(AUTO) 3.45 MIL/uL (4.0-5.2); RED CELL DISTRIBUTION WIDTH 17.4 % (11.5-15.0); WHITE BLOOD COUNT (AUTO) 9.6 K/uL (4.3-11.0)
[2023-05-25 07:39] LABS: CALCIUM, SERUM 8.5 mg/dL (8.5-10.1); CREATININE 0.8 mg/dL (0.6-1.3); MAGNESIUM 2.1 mg/dL (1.8-2.4); POTASSIUM 3.9 mmol/L (3.5-5.1)
[2023-05-25] MEDS: IPRATROPIUM NEB FS 0.5 MG/2.5 ML AMPUL.NEB NEB SCH ×3 (07:45→20:42)
[2023-05-25] MEDS: ALBUTEROL HALF STRENGTH 1.25 MG/3 ML VIAL.NEB NEB SCH ×3 (07:45→20:42)
[2023-05-25] MEDS: PANTOPRAZOLE 40 MG/PACK PACK PO SCH (07:59)
[2023-05-25] MEDS: ENSURE CLEAR 237 ML LIQUID (MIX BERRY) PO SCH (09:00)
[2023-05-25] MEDS: METOPROLOL TARTRATE 25 MG TABLET PO SCH ×2 (09:00→21:05)
[2023-05-25 10:05] LABS: ABG BASE EXCESS -3.5 mmol/L; ABG OXYGEN SATURATION 94.5 % (92.0-98.5); ABG PCO2 36.2 mmHg (35.0-45.0); ABG PH 7.382 (7.350-7.450); ABG PO2 80.7 mmHg (75.0-100.0); ABG TOTAL HEMOGLOBIN 12.1 G/dL (12.0-16.0); AaDO2 25.7 mmHg; COHb 0.2 % (0.5-1.5); MetHb 0.2 % (0.0-1.5); O2Hb 94.1 % (94.0-97.0); SITE, ABG Left Radial; VENT MODE, BG RA 21%
[2023-05-25] MEDS: DRONEDARONE HYDROCHLORIDE 400 MG TABLET PO SCH ×2 (10:47→17:25)
[2023-05-25] MEDS: Z GUARD REMEDY 4 OZ OINT TP SCH ×3 (10:47→17:26)
[2023-05-25] MEDS: ENSURE ENLIVE CHOC 237 ML CAN PO SCH (16:19)
[2023-05-25] MEDS: ENOXAPARIN SODIUM 40 MG/0.4 ML DISP.SYRIN SQ SCH (21:18)
[2023-05-25] MEDS: MIRTAZAPINE 15 MG TABLET PO SCH (21:21)
[2023-05-25] MEDS: ATORVASTATIN 10 MG TABLET PO SCH (21:21)
[2023-05-25] MEDS: QUETIAPINE FUMARATE 25 MG TABLET PO SCH (21:21)
[2023-05-26] VITALS (12 sets, daily range): BP systolic 70–190; BP diastolic 45–99; TEMP 93.5–207.5; O2SAT 94–99
[2023-05-26] MEDS: PANTOPRAZOLE 40 MG/PACK PACK PO SCH ×2 (07:30→07:32)
[2023-05-26] MEDS: ENSURE ENLIVE CHOC 237 ML CAN PO SCH ×2 (08:00→16:07)
[2023-05-26 08:03] LABS: BASOPHILS % (AUTO) 0.2 % (0.0-2.0); EOSINOPHILS # (AUTO) 0.1 K/uL (0.0-0.7); EOSINOPHILS % (AUTO) 2.4 % (0.0-6.0); HEMATOCRIT 29 % (33-45); HEMOGLOBIN 10.1 g/dL (11.5-14.8); LYMPHOCYTES % (AUTO) 21.8 % (20.0-44.0); MEAN CORPUSCULAR HEMOGLOBIN 32 PG (26.0-33.0); MEAN CORPUSCULAR HGB CONC 34 g/dl (31.0-36.0); MEAN CORPUSCULAR VOLUME 92 fL (82-100); MONOCYTES # (AUTO) 0.4 K/uL (0.1-1.30); MONOCYTES % (AUTO) 8.8 % (2.0-12.0); NEUTROPHILS # (AUTO) 3.1 K/uL (1.8-8.9); NEUTROPHILS % (AUTO) 66.8 % (43.0-81.0); PLATELET COUNT (AUTO) 104 K/uL (150-450); RED BLOOD CELL COUNT(AUTO) 3.19 MIL/uL (4.0-5.2); RED CELL DISTRIBUTION WIDTH 17.7 % (11.5-15.0); WHITE BLOOD COUNT (AUTO) 4.6 K/uL (4.3-11.0)
[2023-05-26] MEDS: IPRATROPIUM NEB FS 0.5 MG/2.5 ML AMPUL.NEB NEB SCH ×3 (08:21→19:58)
[2023-05-26] MEDS: ALBUTEROL HALF STRENGTH 1.25 MG/3 ML VIAL.NEB NEB SCH ×3 (08:21→19:58)
[2023-05-26 08:26] LABS: CALCIUM, SERUM 8.5 mg/dL (8.5-10.1); MAGNESIUM 2.1 mg/dL (1.8-2.4); PHOSPHORUS 4.5 mg/dL (2.5-4.9); POTASSIUM 3.8 mmol/L (3.5-5.1)
[2023-05-26] MEDS: DRONEDARONE HYDROCHLORIDE 400 MG TABLET PO SCH ×2 (09:00→16:46)
[2023-05-26] MEDS: METOPROLOL TARTRATE 25 MG TABLET PO SCH ×2 (09:00→21:28)
[2023-05-26] MEDS: CEFEPIME 2 GM in IV D5W 100 ML IV SCH ×2 (09:05→21:31)
[2023-05-26] MEDS: Z GUARD REMEDY 4 OZ OINT TP SCH ×3 (09:50→16:47)
[2023-05-26 13:02] LABS: THYROID STIMULATING HORMONE 4.606 uIU/mL (0.358-3.74)
[2023-05-26 13:17] LABS: OCCULT BLOOD STOOL NEGATIVE (NEGATIVE)
[2023-05-26] MEDS: QUETIAPINE FUMARATE 25 MG TABLET PO SCH (21:28)
[2023-05-26] MEDS: ATORVASTATIN 10 MG TABLET PO SCH (21:28)
[2023-05-26] MEDS: MIRTAZAPINE 15 MG TABLET PO SCH (21:28)
[2023-05-26] MEDS: ENOXAPARIN SODIUM 40 MG/0.4 ML DISP.SYRIN SQ SCH (21:32)
[2023-05-27] VITALS (10 sets, daily range): BP systolic 111–144; BP diastolic 70–110; TEMP 97.5–98.2; O2SAT 89–100
[2023-05-27] MEDS ORDERED: JEVITY 1.2 CAL 1,000 ML BOTTLE GT PRN (01:30)
[2023-05-27 07:22] LABS: BASOPHILS % (AUTO) 0.4 % (0.0-2.0); EOSINOPHILS # (AUTO) 0.1 K/uL (0.0-0.7); EOSINOPHILS % (AUTO) 1.6 % (0.0-6.0); HEMATOCRIT 32 % (33-45); HEMOGLOBIN 10.6 g/dL (11.5-14.8); LYMPHOCYTES # (AUTO) 0.9 K/uL (0.8-4.8); LYMPHOCYTES % (AUTO) 14.8 % (20.0-44.0); MEAN CORPUSCULAR HEMOGLOBIN 31 PG (26.0-33.0); MEAN CORPUSCULAR HGB CONC 33 g/dl (31.0-36.0); MEAN CORPUSCULAR VOLUME 94 fL (82-100); MONOCYTES # (AUTO) 0.6 K/uL (0.1-1.30); MONOCYTES % (AUTO) 9.5 % (2.0-12.0); NEUTROPHILS # (AUTO) 4.6 K/uL (1.8-8.9); NEUTROPHILS % (AUTO) 73.7 % (43.0-81.0); PLATELET COUNT (AUTO) 133 K/uL (150-450); RED CELL DISTRIBUTION WIDTH 18.3 % (11.5-15.0); WHITE BLOOD COUNT (AUTO) 6.2 K/uL (4.3-11.0)
[2023-05-27 07:40] LABS: CALCIUM, SERUM 8.4 mg/dL (8.5-10.1); CREATININE 0.9 mg/dL (0.6-1.3); PHOSPHORUS 3.6 mg/dL (2.5-4.9); POTASSIUM 3.7 mmol/L (3.5-5.1)
[2023-05-27] MEDS: ENSURE ENLIVE CHOC 237 ML CAN PO SCH ×2 (08:00→16:13)
[2023-05-27] MEDS: IPRATROPIUM NEB FS 0.5 MG/2.5 ML AMPUL.NEB NEB SCH ×3 (08:43→20:26)
[2023-05-27] MEDS: ALBUTEROL HALF STRENGTH 1.25 MG/3 ML VIAL.NEB NEB SCH ×3 (08:43→20:26)
[2023-05-27] MEDS: METOPROLOL TARTRATE 25 MG TABLET PO SCH ×2 (09:00→21:28)
[2023-05-27] MEDS: CEFEPIME 2 GM in IV D5W 100 ML IV SCH ×3 (09:41→21:31)
[2023-05-27 09:54] LABS: ABG OXYGEN SATURATION 93.3 % (92.0-98.5); ABG PCO2 33.8 mmHg (35.0-45.0); ABG PH 7.427 (7.350-7.450); ABG TOTAL HEMOGLOBIN 11.5 G/dL (12.0-16.0); AaDO2 38.3 mmHg; COHb 0.7 % (0.5-1.5); MetHb 0.1 % (0.0-1.5); O2Hb 92.6 % (94.0-97.0); SITE, ABG Right Brachial; VENT MODE, BG RA
[2023-05-27] MEDS: PANTOPRAZOLE 40 MG/PACK PACK PO SCH (10:34)
[2023-05-27] MEDS: DRONEDARONE HYDROCHLORIDE 400 MG TABLET PO SCH ×2 (10:34→16:33)
[2023-05-27] MEDS: Z GUARD REMEDY 4 OZ OINT TP SCH ×2 (10:34→16:17)
[2023-05-27] MEDS: ATORVASTATIN 10 MG TABLET PO SCH (21:28)
[2023-05-27] MEDS: ENOXAPARIN SODIUM 40 MG/0.4 ML DISP.SYRIN SQ SCH (21:30)
[2023-05-28] VITALS (10 sets, daily range): BP systolic 105–132; BP diastolic 56–96; TEMP 97.5–98.6; O2SAT 92–100
[2023-05-28 05:58] LABS: CALCIUM, SERUM 8.4 mg/dL (8.5-10.1); CREATININE 0.8 mg/dL (0.6-1.3); POTASSIUM 3.8 mmol/L (3.5-5.1)
[2023-05-28] MEDS: IPRATROPIUM NEB FS 0.5 MG/2.5 ML AMPUL.NEB NEB SCH ×3 (07:26→19:59)
[2023-05-28] MEDS: ALBUTEROL HALF STRENGTH 1.25 MG/3 ML VIAL.NEB NEB SCH ×3 (07:27→19:59)
[2023-05-28] MEDS: ENSURE ENLIVE CHOC 237 ML CAN PO SCH ×2 (08:22→17:16)
[2023-05-28] MEDS: CEFEPIME 2 GM in IV D5W 100 ML IV SCH ×2 (08:31→21:43)
[2023-05-28] MEDS: PANTOPRAZOLE 40 MG/PACK PACK PO SCH (08:31)
[2023-05-28] MEDS: METOPROLOL TARTRATE 25 MG TABLET PO SCH ×2 (08:32→21:00)
[2023-05-28] MEDS: Z GUARD REMEDY 4 OZ OINT TP SCH ×3 (09:00→17:17)
[2023-05-28] MEDS: DRONEDARONE HYDROCHLORIDE 400 MG TABLET PO SCH ×2 (09:00→17:17)
[2023-05-28] MEDS: LEVOTHYROXINE SODIUM 50 MCG TABLET PO SCH (14:13)
[2023-05-28] MEDS: ATORVASTATIN 10 MG TABLET PO SCH (21:43)
[2023-05-28] MEDS: ENOXAPARIN SODIUM 40 MG/0.4 ML DISP.SYRIN SQ SCH (21:49)
[2023-05-29] VITALS (12 sets, daily range): BP systolic 103–135; BP diastolic 54–98; TEMP 97.7–98.8; O2SAT 94–98
[2023-05-29] MEDS: ALBUTEROL HALF STRENGTH 1.25 MG/3 ML VIAL.NEB NEB SCH ×3 (07:45→19:13)
[2023-05-29] MEDS: IPRATROPIUM NEB FS 0.5 MG/2.5 ML AMPUL.NEB NEB SCH ×3 (07:45→19:13)
[2023-05-29] MEDS: ENSURE ENLIVE CHOC 237 ML CAN PO SCH ×2 (08:00→16:32)
[2023-05-29] MEDS: METOPROLOL TARTRATE 25 MG TABLET PO SCH ×2 (09:02→21:00)
[2023-05-29] MEDS: LEVOTHYROXINE SODIUM 50 MCG TABLET PO SCH (09:02)
[2023-05-29] MEDS: DRONEDARONE HYDROCHLORIDE 400 MG TABLET PO SCH ×2 (09:02→16:32)
[2023-05-29] MEDS: CEFEPIME 2 GM in IV D5W 100 ML IV SCH ×2 (09:03→21:59)
[2023-05-29] MEDS: PANTOPRAZOLE 40 MG/PACK PACK PO SCH (09:20)
[2023-05-29] MEDS: Z GUARD REMEDY 4 OZ OINT TP SCH ×3 (11:40→16:34)
[2023-05-29] MEDS: JEVITY 1.2 CAL 1,000 ML BOTTLE GT PRN (18:29)
[2023-05-29] MEDS: ATORVASTATIN 10 MG TABLET PO SCH (22:00)
[2023-05-29] MEDS: ENOXAPARIN SODIUM 40 MG/0.4 ML DISP.SYRIN SQ SCH (22:08)
[2023-05-30] VITALS (12 sets, daily range): BP systolic 93–120; BP diastolic 57–72; TEMP 96.9–97.7; O2SAT 94–98
[2023-05-30 05:54] LABS: BASOPHILS % (AUTO) 0.6 % (0.0-2.0); EOSINOPHILS # (AUTO) 0.1 K/uL (0.0-0.7); EOSINOPHILS % (AUTO) 2.1 % (0.0-6.0); HEMATOCRIT 30 % (33-45); HEMOGLOBIN 10.1 g/dL (11.5-14.8); LYMPHOCYTES # (AUTO) 1.4 K/uL (0.8-4.8); LYMPHOCYTES % (AUTO) 20.7 % (20.0-44.0); MEAN CORPUSCULAR HEMOGLOBIN 31 PG (26.0-33.0); MEAN CORPUSCULAR HGB CONC 33 g/dl (31.0-36.0); MEAN CORPUSCULAR VOLUME 93 fL (82-100); MONOCYTES # (AUTO) 0.8 K/uL (0.1-1.30); MONOCYTES % (AUTO) 11.4 % (2.0-12.0); NEUTROPHILS # (AUTO) 4.5 K/uL (1.8-8.9); NEUTROPHILS % (AUTO) 65.2 % (43.0-81.0); PLATELET COUNT (AUTO) 166 K/uL (150-450); RED BLOOD CELL COUNT(AUTO) 3.26 MIL/uL (4.0-5.2); RED CELL DISTRIBUTION WIDTH 17.9 % (11.5-15.0); WHITE BLOOD COUNT (AUTO) 6.8 K/uL (4.3-11.0)
[2023-05-30 06:08] LABS: CALCIUM, SERUM 8.3 mg/dL (8.5-10.1); CREATININE 0.8 mg/dL (0.6-1.3); PHOSPHORUS 3.7 mg/dL (2.5-4.9); POTASSIUM 3.9 mmol/L (3.5-5.1)
[2023-05-30] MEDS: ALBUTEROL HALF STRENGTH 1.25 MG/3 ML VIAL.NEB NEB SCH ×3 (07:48→20:18)
[2023-05-30] MEDS: IPRATROPIUM NEB FS 0.5 MG/2.5 ML AMPUL.NEB NEB SCH ×3 (07:48→20:18)
[2023-05-30] MEDS: ENSURE ENLIVE CHOC 237 ML CAN PO SCH (08:00)
[2023-05-30] MEDS: PANTOPRAZOLE 40 MG/PACK PACK PO SCH (08:07)
[2023-05-30] MEDS: METOPROLOL TARTRATE 25 MG TABLET PO SCH ×2 (09:00→22:48)
[2023-05-30] MEDS: DRONEDARONE HYDROCHLORIDE 400 MG TABLET PO SCH ×2 (09:38→16:26)
[2023-05-30] MEDS: CEFEPIME 2 GM in IV D5W 100 ML IV SCH ×2 (09:38→22:30)
[2023-05-30] MEDS: Z GUARD REMEDY 4 OZ OINT TP SCH ×3 (09:39→16:26)
[2023-05-30] MEDS: LEVOTHYROXINE SODIUM 50 MCG TABLET PO SCH (09:39)
[2023-05-30] MEDS: JEVITY 1.2 CAL 1,000 ML BOTTLE GT PRN (16:57)
[2023-05-30] MEDS: ATORVASTATIN 10 MG TABLET PO SCH (22:48)
[2023-05-30] MEDS: ENOXAPARIN SODIUM 40 MG/0.4 ML DISP.SYRIN SQ SCH (22:50)
[2023-05-31] VITALS (11 sets, daily range): BP systolic 92–113; BP diastolic 52–92; TEMP 97.5–98.5; O2SAT 95–98
[2023-05-31] MEDS: ALBUTEROL HALF STRENGTH 1.25 MG/3 ML VIAL.NEB NEB SCH ×3 (07:53→20:20)
[2023-05-31] MEDS: IPRATROPIUM NEB FS 0.5 MG/2.5 ML AMPUL.NEB NEB SCH ×3 (07:53→20:20)
[2023-05-31] MEDS: PANTOPRAZOLE 40 MG/PACK PACK PO SCH (08:52)
[2023-05-31] MEDS: LEVOTHYROXINE SODIUM 50 MCG TABLET PO SCH (08:53)
[2023-05-31] MEDS: DRONEDARONE HYDROCHLORIDE 400 MG TABLET PO SCH ×2 (08:53→16:34)
[2023-05-31] MEDS: METOPROLOL TARTRATE 25 MG TABLET PO SCH ×2 (08:53→21:32)
[2023-05-31] MEDS: CEFEPIME 2 GM in IV D5W 100 ML IV SCH (08:57)
[2023-05-31] MEDS: Z GUARD REMEDY 4 OZ OINT TP SCH ×3 (08:59→16:34)
[2023-05-31 12:02] LABS: SERUM AMMONIA 32 umol/L (11-32)
[2023-05-31] MEDS: JEVITY 1.2 CAL 1,000 ML BOTTLE GT PRN (12:40)
[2023-05-31] MEDS: CEFTRIAXONE 1 G in IV D5W 50 ML IV SCH (21:31)
[2023-05-31] MEDS: ATORVASTATIN 10 MG TABLET PO SCH (21:32)
[2023-05-31] MEDS: ENOXAPARIN SODIUM 40 MG/0.4 ML DISP.SYRIN SQ SCH (22:28)
[2023-06-01] VITALS (12 sets, daily range): BP systolic 95–118; BP diastolic 55–80; TEMP 96.5–99; O2SAT 95–100
[2023-06-01] MEDS: IPRATROPIUM NEB FS 0.5 MG/2.5 ML AMPUL.NEB NEB SCH ×3 (07:57→20:20)
[2023-06-01] MEDS: ALBUTEROL HALF STRENGTH 1.25 MG/3 ML VIAL.NEB NEB SCH ×3 (07:58→20:20)
[2023-06-01] MEDS: PANTOPRAZOLE 40 MG/PACK PACK PO SCH (08:36)
[2023-06-01] MEDS: METOPROLOL TARTRATE 25 MG TABLET PO SCH ×2 (09:00→21:00)
[2023-06-01] MEDS: Z GUARD REMEDY 4 OZ OINT TP SCH ×3 (09:00→17:28)
[2023-06-01] MEDS: DRONEDARONE HYDROCHLORIDE 400 MG TABLET PO SCH ×2 (09:03→17:10)
[2023-06-01] MEDS: LEVOTHYROXINE SODIUM 50 MCG TABLET PO SCH (09:04)
[2023-06-01] MEDS: CEFTRIAXONE 1 G in IV D5W 50 ML IV SCH (21:13)
[2023-06-01] MEDS: ATORVASTATIN 10 MG TABLET PO SCH (21:22)
[2023-06-01] MEDS: ENOXAPARIN SODIUM 40 MG/0.4 ML DISP.SYRIN SQ SCH (21:25)
[2023-06-02] VITALS (10 sets, daily range): BP systolic 96–142; BP diastolic 41–86; TEMP 97.3–97.8; O2SAT 95–100
[2023-06-02] MEDS: JEVITY 1.2 CAL 1,000 ML BOTTLE GT PRN (01:57)
[2023-06-02 07:16] LABS: BASOPHILS % (AUTO) 0.4 % (0.0-2.0); EOSINOPHILS # (AUTO) 0.1 K/uL (0.0-0.7); HEMATOCRIT 31 % (33-45); HEMOGLOBIN 10.4 g/dL (11.5-14.8); LYMPHOCYTES # (AUTO) 1.4 K/uL (0.8-4.8); MEAN CORPUSCULAR HEMOGLOBIN 31 PG (26.0-33.0); MEAN CORPUSCULAR HGB CONC 34 g/dl (31.0-36.0); MEAN CORPUSCULAR VOLUME 94 fL (82-100); MONOCYTES # (AUTO) 0.5 K/uL (0.1-1.30); MONOCYTES % (AUTO) 8.4 % (2.0-12.0); NEUTROPHILS # (AUTO) 3.8 K/uL (1.8-8.9); NEUTROPHILS % (AUTO) 65.2 % (43.0-81.0); PLATELET COUNT (AUTO) 242 K/uL (150-450); RED BLOOD CELL COUNT(AUTO) 3.32 MIL/uL (4.0-5.2); WHITE BLOOD COUNT (AUTO) 5.9 K/uL (4.3-11.0)
[2023-06-02 07:32] LABS: CALCIUM, SERUM 8.5 mg/dL (8.5-10.1); CREATININE 0.7 mg/dL (0.6-1.3); MAGNESIUM 2.3 mg/dL (1.8-2.4); POTASSIUM 4.6 mmol/L (3.5-5.1)
[2023-06-02] MEDS: IPRATROPIUM NEB FS 0.5 MG/2.5 ML AMPUL.NEB NEB SCH ×3 (07:42→19:30)
[2023-06-02] MEDS: ALBUTEROL HALF STRENGTH 1.25 MG/3 ML VIAL.NEB NEB SCH ×3 (07:42→19:30)
[2023-06-02] MEDS: METOPROLOL TARTRATE 25 MG TABLET PO SCH ×2 (09:00→21:57)
[2023-06-02] MEDS: LEVOTHYROXINE SODIUM 50 MCG TABLET PO SCH (09:20)
[2023-06-02] MEDS: DRONEDARONE HYDROCHLORIDE 400 MG TABLET PO SCH ×2 (09:20→16:48)
[2023-06-02] MEDS: PANTOPRAZOLE 40 MG/PACK PACK PO SCH (09:20)
[2023-06-02] MEDS: Z GUARD REMEDY 4 OZ OINT TP SCH ×3 (09:23→16:59)
[2023-06-02] MEDS: CEFTRIAXONE 1 G in IV D5W 50 ML IV SCH (21:51)
[2023-06-02] MEDS: ENOXAPARIN SODIUM 40 MG/0.4 ML DISP.SYRIN SQ SCH (21:53)
[2023-06-02] MEDS: ATORVASTATIN 10 MG TABLET PO SCH (21:55)
[2023-06-03] VITALS (12 sets, daily range): BP systolic 111–128; BP diastolic 57–72; TEMP 97.6–98.6; O2SAT 93–99
[2023-06-03] MEDS: JEVITY 1.2 CAL 1,000 ML BOTTLE GT PRN (06:09)
[2023-06-03 07:05] LABS: BASOPHILS % (AUTO) 0.4 % (0.0-2.0); EOSINOPHILS # (AUTO) 0.1 K/uL (0.0-0.7); EOSINOPHILS % (AUTO) 1.5 % (0.0-6.0); HEMATOCRIT 34 % (33-45); HEMOGLOBIN 11.4 g/dL (11.5-14.8); LYMPHOCYTES # (AUTO) 1.2 K/uL (0.8-4.8); LYMPHOCYTES % (AUTO) 12.5 % (20.0-44.0); MEAN CORPUSCULAR HEMOGLOBIN 31 PG (26.0-33.0); MEAN CORPUSCULAR HGB CONC 33 g/dl (31.0-36.0); MEAN CORPUSCULAR VOLUME 94 fL (82-100); MONOCYTES # (AUTO) 0.7 K/uL (0.1-1.30); MONOCYTES % (AUTO) 6.9 % (2.0-12.0); NEUTROPHILS # (AUTO) 7.7 K/uL (1.8-8.9); NEUTROPHILS % (AUTO) 78.7 % (43.0-81.0); PLATELET COUNT (AUTO) 271 K/uL (150-450); RED BLOOD CELL COUNT(AUTO) 3.65 MIL/uL (4.0-5.2); RED CELL DISTRIBUTION WIDTH 17.5 % (11.5-15.0); WHITE BLOOD COUNT (AUTO) 9.8 K/uL (4.3-11.0)
[2023-06-03 07:21] LABS: CREATININE 0.7 mg/dL (0.6-1.3); MAGNESIUM 2.2 mg/dL (1.8-2.4); PHOSPHORUS 4.3 mg/dL (2.5-4.9); POTASSIUM 5.2 mmol/L (3.5-5.1)
[2023-06-03] MEDS: PANTOPRAZOLE 40 MG/PACK PACK PO SCH (08:21)
[2023-06-03] MEDS: LEVOTHYROXINE SODIUM 50 MCG TABLET PO SCH (08:22)
[2023-06-03] MEDS: Z GUARD REMEDY 4 OZ OINT TP SCH ×3 (08:22→16:29)
[2023-06-03] MEDS: DRONEDARONE HYDROCHLORIDE 400 MG TABLET PO SCH ×3 (08:22→17:32)
[2023-06-03] MEDS: METOPROLOL TARTRATE 25 MG TABLET PO SCH ×2 (08:23→22:15)
[2023-06-03] MEDS: IPRATROPIUM NEB FS 0.5 MG/2.5 ML AMPUL.NEB NEB SCH ×3 (08:34→19:51)
[2023-06-03] MEDS: ALBUTEROL HALF STRENGTH 1.25 MG/3 ML VIAL.NEB NEB SCH ×3 (08:35→19:51)
[2023-06-03] MEDS: ENOXAPARIN SODIUM 40 MG/0.4 ML DISP.SYRIN SQ SCH (21:00)
[2023-06-03] MEDS: ATORVASTATIN 10 MG TABLET PO SCH (22:14)
[2023-06-03] MEDS: CEFTRIAXONE 1 G in IV D5W 50 ML IV SCH (22:20)
[2023-06-04] VITALS (12 sets, daily range): BP systolic 92–113; BP diastolic 56–75; TEMP 97.7–98.7; O2SAT 95–98
[2023-06-04 07:03] LABS: BASOPHILS % (AUTO) 0.2 % (0.0-2.0); EOSINOPHILS # (AUTO) 0.1 K/uL (0.0-0.7); EOSINOPHILS % (AUTO) 0.6 % (0.0-6.0); HEMATOCRIT 34 % (33-45); HEMOGLOBIN 11.1 g/dL (11.5-14.8); LYMPHOCYTES # (AUTO) 1.5 K/uL (0.8-4.8); LYMPHOCYTES % (AUTO) 12.8 % (20.0-44.0); MEAN CORPUSCULAR HEMOGLOBIN 31 PG (26.0-33.0); MEAN CORPUSCULAR HGB CONC 33 g/dl (31.0-36.0); MEAN CORPUSCULAR VOLUME 95 fL (82-100); MONOCYTES % (AUTO) 8.4 % (2.0-12.0); NEUTROPHILS # (AUTO) 8.9 K/uL (1.8-8.9); PLATELET COUNT (AUTO) 267 K/uL (150-450); RED BLOOD CELL COUNT(AUTO) 3.58 MIL/uL (4.0-5.2); RED CELL DISTRIBUTION WIDTH 17.6 % (11.5-15.0); WHITE BLOOD COUNT (AUTO) 11.4 K/uL (4.3-11.0)
[2023-06-04 07:28] LABS: CALCIUM, SERUM 8.8 mg/dL (8.5-10.1); CREATININE 0.9 mg/dL (0.6-1.3); MAGNESIUM 2.5 mg/dL (1.8-2.4); PHOSPHORUS 4.7 mg/dL (2.5-4.9); POTASSIUM 5.4 mmol/L (3.5-5.1)
[2023-06-04] MEDS: PANTOPRAZOLE 40 MG/PACK PACK PO SCH (07:30)
[2023-06-04 07:54] LABS: THYROID STIMULATING HORMONE 3.802 uIU/mL (0.358-3.74)
[2023-06-04] MEDS: ALBUTEROL HALF STRENGTH 1.25 MG/3 ML VIAL.NEB NEB SCH ×3 (08:17→19:44)
[2023-06-04] MEDS: IPRATROPIUM NEB FS 0.5 MG/2.5 ML AMPUL.NEB NEB SCH ×3 (08:17→19:44)
[2023-06-04 08:42] LABS: INR 1.01 (0.91-1.10); PROTHROMBIN TIME 10.7 SECS (9.2-11.1)
[2023-06-04] MEDS: DRONEDARONE HYDROCHLORIDE 400 MG TABLET PO SCH ×2 (09:00→16:17)
[2023-06-04] MEDS: LEVOTHYROXINE SODIUM 50 MCG TABLET PO SCH (09:00)
[2023-06-04] MEDS: METOPROLOL TARTRATE 25 MG TABLET PO SCH ×2 (09:00→21:40)
[2023-06-04] MEDS: Z GUARD REMEDY 4 OZ OINT TP SCH ×3 (09:03→16:18)
[2023-06-04] MEDS: ATORVASTATIN 10 MG TABLET PO SCH (21:40)
[2023-06-04] MEDS: ENOXAPARIN SODIUM 40 MG/0.4 ML DISP.SYRIN SQ SCH (21:44)
[2023-06-04] MEDS: CEFTRIAXONE 1 G in IV D5W 50 ML IV SCH (21:50)
[2023-06-05] VITALS (10 sets, daily range): BP systolic 95–110; BP diastolic 42–73; TEMP 98.6–98.9; O2SAT 95–99
[2023-06-05] MEDS: IPRATROPIUM NEB FS 0.5 MG/2.5 ML AMPUL.NEB NEB SCH ×3 (08:26→19:28)
[2023-06-05] MEDS: ALBUTEROL HALF STRENGTH 1.25 MG/3 ML VIAL.NEB NEB SCH ×3 (08:26→19:28)
[2023-06-05] MEDS: LEVOTHYROXINE SODIUM 50 MCG TABLET PO SCH (08:40)
[2023-06-05] MEDS: JEVITY 1.2 CAL 1,000 ML BOTTLE GT PRN (08:40)
[2023-06-05] MEDS: PANTOPRAZOLE 40 MG/PACK PACK PO SCH (08:40)
[2023-06-05] MEDS: DRONEDARONE HYDROCHLORIDE 400 MG TABLET PO SCH ×2 (08:40→16:08)
[2023-06-05] MEDS: METOPROLOL TARTRATE 25 MG TABLET PO SCH ×2 (09:00→21:00)
[2023-06-05] MEDS: Z GUARD REMEDY 4 OZ OINT TP SCH ×3 (09:07→16:08)
[2023-06-05 12:13] LABS: BASOPHILS % (AUTO) 0.7 % (0.0-2.0); EOSINOPHILS # (AUTO) 0.1 K/uL (0.0-0.7); EOSINOPHILS % (AUTO) 1.3 % (0.0-6.0); HEMATOCRIT 34 % (33-45); HEMOGLOBIN 11.2 g/dL (11.5-14.8); LYMPHOCYTES # (AUTO) 1.4 K/uL (0.8-4.8); MEAN CORPUSCULAR HEMOGLOBIN 31 PG (26.0-33.0); MEAN CORPUSCULAR HGB CONC 33 g/dl (31.0-36.0); MEAN CORPUSCULAR VOLUME 93 fL (82-100); MONOCYTES # (AUTO) 0.5 K/uL (0.1-1.30); MONOCYTES % (AUTO) 7.4 % (2.0-12.0); NEUTROPHILS % (AUTO) 70.6 % (43.0-81.0); PLATELET COUNT (AUTO) 278 K/uL (150-450); RED BLOOD CELL COUNT(AUTO) 3.61 MIL/uL (4.0-5.2); RED CELL DISTRIBUTION WIDTH 17.4 % (11.5-15.0); WHITE BLOOD COUNT (AUTO) 7.1 K/uL (4.3-11.0)
[2023-06-05 12:27] LABS: ALBUMIN 2.3 g/dL (3.4-5.0); BILIRUBIN,TOTAL 0.4 mg/dL (0.2-1.0); CALCIUM, SERUM 8.9 mg/dL (8.5-10.1); CREATININE 0.8 mg/dL (0.6-1.3); MAGNESIUM 2.4 mg/dL (1.8-2.4); POTASSIUM 4.9 mmol/L (3.5-5.1); TOTAL PROTEIN, SERUM 6.5 g/dL (6.4-8.2)
[2023-06-05] MEDS: CEFTRIAXONE 1 G in IV D5W 50 ML IV SCH (22:57)
[2023-06-05] MEDS: ATORVASTATIN 10 MG TABLET PO SCH (22:58)
[2023-06-05] MEDS: ENOXAPARIN SODIUM 40 MG/0.4 ML DISP.SYRIN SQ SCH (22:59)
[2023-06-06] VITALS (9 sets, daily range): BP systolic 108–136; BP diastolic 59–102; TEMP 98.2–98.4; O2SAT 96–99
[2023-06-06] MEDS: IPRATROPIUM NEB FS 0.5 MG/2.5 ML AMPUL.NEB NEB SCH ×3 (07:41→19:24)
[2023-06-06] MEDS: ALBUTEROL HALF STRENGTH 1.25 MG/3 ML VIAL.NEB NEB SCH ×3 (07:41→19:24)
[2023-06-06 07:44] LABS: BASOPHILS % (AUTO) 0.5 % (0.0-2.0); EOSINOPHILS # (AUTO) 0.1 K/uL (0.0-0.7); EOSINOPHILS % (AUTO) 1.7 % (0.0-6.0); HEMATOCRIT 33 % (33-45); HEMOGLOBIN 11.1 g/dL (11.5-14.8); LYMPHOCYTES # (AUTO) 1.3 K/uL (0.8-4.8); LYMPHOCYTES % (AUTO) 14.5 % (20.0-44.0); MEAN CORPUSCULAR HEMOGLOBIN 32 PG (26.0-33.0); MEAN CORPUSCULAR HGB CONC 34 g/dl (31.0-36.0); MEAN CORPUSCULAR VOLUME 94 fL (82-100); MONOCYTES # (AUTO) 0.8 K/uL (0.1-1.30); MONOCYTES % (AUTO) 9.1 % (2.0-12.0); NEUTROPHILS # (AUTO) 6.6 K/uL (1.8-8.9); NEUTROPHILS % (AUTO) 74.2 % (43.0-81.0); PLATELET COUNT (AUTO) 286 K/uL (150-450); RED BLOOD CELL COUNT(AUTO) 3.53 MIL/uL (4.0-5.2); RED CELL DISTRIBUTION WIDTH 17.2 % (11.5-15.0); WHITE BLOOD COUNT (AUTO) 8.9 K/uL (4.3-11.0)
[2023-06-06 08:00] LABS: ALBUMIN 2.2 g/dL (3.4-5.0); BILIRUBIN,TOTAL 0.2 mg/dL (0.2-1.0); CALCIUM, SERUM 8.7 mg/dL (8.5-10.1); CREATININE 0.7 mg/dL (0.6-1.3); MAGNESIUM 2.3 mg/dL (1.8-2.4); PHOSPHORUS 4.3 mg/dL (2.5-4.9); POTASSIUM 4.6 mmol/L (3.5-5.1); TOTAL PROTEIN, SERUM 6.3 g/dL (6.4-8.2)
[2023-06-06] MEDS: PANTOPRAZOLE 40 MG/PACK PACK PO SCH (08:56)
[2023-06-06] MEDS: LEVOTHYROXINE SODIUM 50 MCG TABLET PO SCH (08:56)
[2023-06-06] MEDS: DRONEDARONE HYDROCHLORIDE 400 MG TABLET PO SCH ×2 (08:56→16:14)
[2023-06-06] MEDS: METOPROLOL TARTRATE 25 MG TABLET PO SCH ×2 (08:56→21:45)
[2023-06-06] MEDS: Z GUARD REMEDY 4 OZ OINT TP SCH ×3 (11:04→16:15)
[2023-06-06] MEDS: CEFTRIAXONE 1 G in IV D5W 50 ML IV SCH (21:31)
[2023-06-06] MEDS: ATORVASTATIN 10 MG TABLET PO SCH (21:34)
[2023-06-06] MEDS: ENOXAPARIN SODIUM 40 MG/0.4 ML DISP.SYRIN SQ SCH (21:36)
[2023-06-07 04:00] VITALS: BP 118/59; TEMP 98.3; O2SAT 96
[2023-06-07] MEDS: PANTOPRAZOLE 40 MG/PACK PACK PO SCH (07:18)
[2023-06-07 07:54] VITALS: O2SAT 97
[2023-06-07] MEDS: ALBUTEROL HALF STRENGTH 1.25 MG/3 ML VIAL.NEB NEB SCH ×2 (07:54→13:40)
[2023-06-07] MEDS: IPRATROPIUM NEB FS 0.5 MG/2.5 ML AMPUL.NEB NEB SCH ×2 (07:54→13:40)
[2023-06-07 08:00] VITALS: BP 86/60; TEMP 97.1; O2SAT 98
[2023-06-07 08:09] VITALS: O2SAT 99
[2023-06-07 09:00] VITALS: BP 86/60
[2023-06-07] MEDS: METOPROLOL TARTRATE 25 MG TABLET PO SCH (09:00)
[2023-06-07] MEDS: LEVOTHYROXINE SODIUM 50 MCG TABLET PO SCH (09:01)
[2023-06-07] MEDS: DRONEDARONE HYDROCHLORIDE 400 MG TABLET PO SCH (09:02)
[2023-06-07] MEDS: Z GUARD REMEDY 4 OZ OINT TP SCH ×2 (10:12→13:41)
[2023-06-07 13:40] VITALS: O2SAT 96
== END 2023-06-07 16:01 | DRG 177 ==
LOC: ER 17:54 → TELE 21:30 → TELE1 05-19 11:23 → TELE-TD 05-19 11:43 → TELE1 05-21 10:57 → MEDSG1 05-25 09:15 → TELE1 05-26 09:24 → MEDSG1 06-02 11:34
PROVIDERS: ADMIT Nurse Practitioner Family; ATTEND Internal Medicine
PROC: 05HC33Z Insertion of Infusion Device into Left Basilic Vein, Percutaneous Approach (ICD-10-PCS; principal; 2023-05-30)
PROC: 0DH63UZ Insertion of Feeding Device into Stomach, Percutaneous Approach (ICD-10-PCS; 2023-06-04)
DX: J69.0 Pneumonitis due to inhalation of food and vomit (principal); G92.8 Other toxic encephalopathy; I21.4 Non-ST elevation (NSTEMI) myocardial infarction; J98.11 Atelectasis; F03.94 Unspecified dementia, unspecified severity, with anxiety; E44.0 Moderate protein-calorie malnutrition; E87.20 Acidosis, unspecified; N39.0 Urinary tract infection, site not specified; N17.9 Acute kidney failure, unspecified; E86.0 Dehydration; M19.90 Unspecified osteoarthritis, unspecified site; M50.31 Other cervical disc degeneration, high cervical region; I48.91 Unspecified atrial fibrillation; E88.09 Other disorders of plasma-protein metabolism, not elsewhere classified; E78.5 Hyperlipidemia, unspecified; E86.9 Volume depletion, unspecified; K29.70 Gastritis, unspecified, without bleeding; B96.89 Other specified bacterial agents as the cause of diseases classified elsewhere; D64.9 Anemia, unspecified; E87.5 Hyperkalemia; M89.8X9 Other specified disorders of bone, unspecified site; Z79.01 Long term (current) use of anticoagulants; N18.9 Chronic kidney disease, unspecified; R13.10 Dysphagia, unspecified; Z79.899 Other long term (current) drug therapy; Z91.81 History of falling; Z93.0 Tracheostomy status; Y95 Nosocomial condition; E03.9 Hypothyroidism, unspecified
CPT/HCPCS: 31720; 36410; 36415; 36600; 43246; 70450-TC; 71045-TC; 71250-TC; 80048-TC; 80053-TC; 80061-TC; 80076-TC; 80202-TC; 81001; 82140-TC; 82272-TC; 82607-TC; 82803-TC; 82962-TC; 83735-TC; 83921; 84100-TC; 84439-TC; 84443-TC; 84481; 84484-TC; 85025-TC; 85610-TC; 87040-TC; 87081-TC; 87086-TC; 92526; 92611-TC; 93307-TC; 94799-TC; 97110-TC; 97112-TC; 97530-TC; A4223; C9113; G0378; J0282; J0690; J0692; J0696; J1100; J1650; J2704; J3370; J3475; J3490; J7030; J7040; J7050; J7060

== ENCOUNTER 2023-08-08 20:24 | Emergency (ER) | payer MEDICARE ==
[~2023-08-08] VITALS: Ht 167.6 cm; Wt 59.0 kg
[~2023-08-08 20:24] MED LIST changes: +ASCO-352 PO; +CALC-481 PO; +CHOL100062 PO; +DOCU-141 PO; -DOCU50LI PO; +ESOM20CA PO; -ESOM20CA37 PO; +LACT-58 PO; +MAG-151 PO; +MIRT-121 PO; -MULT-1275 PO; +MULT-16 PO; +OMEP20CA15 PO; -[UNRECOGNIZED DRUG - OTHER] PO
[2023-08-08 20:31] VITALS: TEMP 98
[2023-08-08] MEDS ORDERED: DIATR MEGLU/DIATRIZOATE SODIUM 30 ML BOTTLE (GASTROGRAPHIN) ONE (20:57)
[2023-08-08 23:45] VITALS: BP 111/78; O2SAT 98
== END 2023-08-08 23:46 ==
LOC: ER 20:38
DX: K94.23 Gastrostomy malfunction (principal); F03.90 Unspecified dementia, unspecified severity, without behavioral disturbance, psychotic disturbance, mood disturbance, and anxiety; I25.2 Old myocardial infarction; I48.91 Unspecified atrial fibrillation; E78.5 Hyperlipidemia, unspecified; K21.9 Gastro-esophageal reflux disease without esophagitis; M19.90 Unspecified osteoarthritis, unspecified site; F41.9 Anxiety disorder, unspecified; F32.A Depression, unspecified; Z79.899 Other long term (current) drug therapy
CPT/HCPCS: 99284; 43762; 74018; Q9963

== ENCOUNTER → 2023-08-13 | Emergency (ER) | payer MEDICARE ==
[~2023-08-13] VITALS: Ht 160 cm; Wt 68.0 kg
[~2023-08-13] MED LIST changes: +DIATR MEGLU/DIATRIZOATE SODIUM 30 ML BOTTLE (GASTROGRAPHIN) ONE
[2023-08-13 14:49] VITALS: BP 115/61; TEMP 98.1; O2SAT 96
== END ==
LOC: ER 12:27
DX: K94.23 Gastrostomy malfunction (principal); F03.90 Unspecified dementia, unspecified severity, without behavioral disturbance, psychotic disturbance, mood disturbance, and anxiety; I25.2 Old myocardial infarction; I48.91 Unspecified atrial fibrillation; E78.5 Hyperlipidemia, unspecified; K21.9 Gastro-esophageal reflux disease without esophagitis; M19.90 Unspecified osteoarthritis, unspecified site; F41.9 Anxiety disorder, unspecified; F32.A Depression, unspecified; Z79.899 Other long term (current) drug therapy
CPT/HCPCS: 99284; 43762; 74018; Q9963

== ENCOUNTER 2023-08-18 19:36 | Emergency (ER) | payer MEDICARE ==
[~2023-08-18] VITALS: Ht 165.1 cm; Wt 59.0 kg
[~2023-08-18 19:36] MED LIST changes: -DIATR MEGLU/DIATRIZOATE SODIUM 30 ML BOTTLE (GASTROGRAPHIN) ONE
[2023-08-18] MEDS ORDERED: DIATR MEGLU/DIATRIZOATE SODIUM 30 ML BOTTLE (GASTROGRAPHIN) ONE (20:09)
[2023-08-18] MEDS: DIATR MEGLU/DIATRIZOATE SODIUM 120 ML BOTTLE (GASTROGRAPHIN) PO STA (20:29)
[2023-08-18 21:34] VITALS: BP 102/70; TEMP 97.8; O2SAT 97
== END 2023-08-18 21:35 | disposition home or self-care (01) ==
LOC: ER 19:38
DX: K94.23 Gastrostomy malfunction (principal); F03.90 Unspecified dementia, unspecified severity, without behavioral disturbance, psychotic disturbance, mood disturbance, and anxiety; E78.5 Hyperlipidemia, unspecified; I48.91 Unspecified atrial fibrillation; F41.9 Anxiety disorder, unspecified; F32.A Depression, unspecified; Z79.899 Other long term (current) drug therapy; Y83.9 Surgical procedure, unspecified as the cause of abnormal reaction of the patient, or of later complication, without mention of misadventure at the time of the procedure
CPT/HCPCS: 99284; 43762; 74018; Q9963 ×2

== ENCOUNTER 2024-01-07 17:07 | Emergency (ER) | payer MEDICARE ==
[~2024-01-07] VITALS: Ht 162.6 cm; Wt 59.4 kg
[~2024-01-07 17:07] MED LIST changes: +ACET-868 GT; -ACET-868 PO; +ATOR10TA GT; +LACT-58 GT; -LACT-58 PO; +MAGN400O6 GT; +OMEP20CA15 GT; -OMEP20CA15 PO
[2024-01-07] MEDS ORDERED: LEVO50TA8 GT (18:27)
[2024-01-07] MEDS ORDERED: GUAI100S9 GT (18:27)
[2024-01-07] MEDS ORDERED: IPRA3AMP23 IH (18:27)
[2024-01-07] MEDS ORDERED: ENOX40DI SQ (18:27)
[2024-01-07] MEDS ORDERED: MULT-213 GT (18:27)
[2024-01-07] MEDS ORDERED: DRON400T6 GT (18:27)
[2024-01-07] MEDS ORDERED: LACT-209 GT (18:27)
[2024-01-07] MEDS ORDERED: METO25TA6 GT (18:27)
[2024-01-07 18:30] VITALS: BP 121/68; TEMP 97.8; O2SAT 95
[2024-01-07] MEDS ORDERED: DIATR MEGLU/DIATRIZOATE SODIUM 30 ML BOTTLE (GASTROGRAPHIN) ONE (18:34)
[2024-01-07] MEDS: DIATR MEGLU/DIATRIZOATE SODIUM 30 ML BOTTLE (GASTROGRAPHIN) PO ONE (18:45)
== END 2024-01-07 19:19 ==
LOC: ER 17:12
DX: K94.23 Gastrostomy malfunction (principal); R13.12 Dysphagia, oropharyngeal phase; G93.41 Metabolic encephalopathy; F03.90 Unspecified dementia, unspecified severity, without behavioral disturbance, psychotic disturbance, mood disturbance, and anxiety; I48.91 Unspecified atrial fibrillation; I25.2 Old myocardial infarction; E78.5 Hyperlipidemia, unspecified; K21.9 Gastro-esophageal reflux disease without esophagitis; F32.A Depression, unspecified; F41.9 Anxiety disorder, unspecified; M19.90 Unspecified osteoarthritis, unspecified site; Y84.8 Other medical procedures as the cause of abnormal reaction of the patient, or of later complication, without mention of misadventure at the time of the procedure; Y82.8 Other medical devices associated with adverse incidents; Y92.89 Other specified places as the place of occurrence of the external cause
CPT/HCPCS: 99284; 43762; 74018; Q9963 ×2

== ENCOUNTER 2024-01-08 00:03 | Emergency (ER) | payer MEDICARE ==
[~2024-01-08] VITALS: Ht 165.1 cm; Wt 65.8 kg
[2024-01-08 00:03] VITALS: TEMP 98
[~2024-01-08 00:03] MED LIST changes: +DRON400T6 GT; +ENOX40DI SQ; +GUAI100S9 GT; +IPRA3AMP23 IH; +LACT-209 GT; +LEVO50TA8 GT; +METO25TA6 GT; +MULT-213 GT
[2024-01-08] MEDS ORDERED: DIATR MEGLU/DIATRIZOATE SODIUM 30 ML BOTTLE (GASTROGRAPHIN) ONE (00:31)
[2024-01-08 00:38] VITALS: BP 98/63; O2SAT 98
== END 2024-01-08 03:35 ==
LOC: ER 00:06
DX: Z43.1 Encounter for attention to gastrostomy (principal); G93.41 Metabolic encephalopathy; F03.90 Unspecified dementia, unspecified severity, without behavioral disturbance, psychotic disturbance, mood disturbance, and anxiety; I25.2 Old myocardial infarction; I48.91 Unspecified atrial fibrillation; E78.5 Hyperlipidemia, unspecified; K21.9 Gastro-esophageal reflux disease without esophagitis; M19.90 Unspecified osteoarthritis, unspecified site; F41.9 Anxiety disorder, unspecified; F32.A Depression, unspecified
CPT/HCPCS: 99283; 74018; Q9963

== ENCOUNTER 2024-08-05 16:24 | Inpatient (IN) | payer MEDICARE ==
[~2024-08-05] VITALS: Ht 165.1 cm; Wt 64.0 kg
[~2024-08-05 16:24] MED LIST changes: -ACET-868 GT; +ACET-868 PO; -ASCO-340 PO; -ASCO-352 PO; -ATOR10TA PO; -CALC-481 PO; -CHOL100062 PO; -CHOL200010 PO; -DOCU-141 PO; -ESOM20CA PO; -LACT-47 PO; -LEVO50TA8 GT; +LEVO50TA8 PO; -MAG-151 PO; -MAGN400O6 PO; -MENT113O4 TP; -MIRT-121 PO; -MIRT-90 PO; -MULT-16 PO; -MULT-213 GT; +MULT-213 PO; -OMEP20CA15 GT; +OMEP20CA15 PO; -QUET25TA PO; -QUET50TA PO
[2024-08-05] MEDS: IV NS 0.9% 1,000 ML BAG IV ONE (17:30)
[2024-08-05 17:55] LABS: BASOPHILS # (AUTO) 0.1 K/uL (0.0-0.2); BASOPHILS % (AUTO) 1.1 % (0.0-2.0); EOSINOPHILS # (AUTO) 0.1 K/uL (0.0-0.7); EOSINOPHILS % (AUTO) 1.5 % (0.0-6.0); HEMATOCRIT 41 % (33-45); HEMOGLOBIN 13.9 g/dL (11.5-14.8); LYMPHOCYTES # (AUTO) 1.6 K/uL (0.8-4.8); LYMPHOCYTES % (AUTO) 18.5 % (20.0-44.0); MEAN CORPUSCULAR HEMOGLOBIN 30 PG (26.0-33.0); MEAN CORPUSCULAR HGB CONC 34 g/dl (31.0-36.0); MEAN CORPUSCULAR VOLUME 90 fL (82-100); MONOCYTES # (AUTO) 0.5 K/uL (0.1-1.30); MONOCYTES % (AUTO) 5.9 % (2.0-12.0); NEUTROPHILS # (AUTO) 6.5 K/uL (1.8-8.9); PLATELET COUNT (AUTO) 270 K/uL (150-450); RED BLOOD CELL COUNT(AUTO) 4.58 MIL/uL (4.0-5.2); RED CELL DISTRIBUTION WIDTH 14.3 % (11.5-15.0); WHITE BLOOD COUNT (AUTO) 8.9 K/uL (4.3-11.0)
[2024-08-05 18:03] LABS: CALCIUM, SERUM 8.7 mg/dL (8.5-10.1); CARBON DIOXIDE 28 mmol/L (21-32); CHLORIDE 104 mmol/L (98-107); CREATININE 0.9 mg/dL (0.6-1.3); GLUCOSE 116 mg/dL (74-106); POTASSIUM 4.6 mmol/L (3.5-5.1); SODIUM SERUM 137 mmol/L (136-145); UREA NITROGEN, BLOOD 18 mg/dL (7-18)
[2024-08-05 18:08] LABS: ALANINE AMINOTRANSFERASE 17 U/L (12-78); ALBUMIN 2.7 g/dL (3.4-5.0); ALKALINE PHOSPHATASE 138 U/L (46-116); ASPARTATE AMINOTRANSFERASE 17 U/L (15-37); BILIRUBIN,DIRECT 0.1 mg/dL (0.0-0.2); BILIRUBIN,TOTAL 0.3 mg/dL (0.2-1.0)
[2024-08-05] MEDS ORDERED: DOCU100T2 PO (18:37)
[2024-08-05] MEDS ORDERED: CHOL500052 PO (18:37)
[2024-08-05] MEDS ORDERED: ASCO-495 PO (18:37)
[2024-08-05] MEDS ORDERED: LOPE2CAP40 PO (18:37)
[2024-08-05] MEDS ORDERED: ACET-2030 PO (18:37)
[2024-08-05] MEDS ORDERED: POLY17PO4 PO (18:37)
[2024-08-05] MEDS ORDERED: FERR-68 PO (18:37)
[2024-08-05] MEDS ORDERED: MAGNESIUM HYDROXIDE 30 ML UDC PO PRN (19:00)
[2024-08-05] MEDS ORDERED: Z GUARD REMEDY 4 OZ OINT TP PRN (19:00)
[2024-08-05] MEDS ORDERED: ACETAMINOPHEN 325 MG TABLET PO PRN (19:00)
[2024-08-05] MEDS ORDERED: ONDANSETRON HCL/PF 4 MG/2 ML VIAL IVP PRN (19:00)
[2024-08-05] MEDS ORDERED: MAG HYDROX/AL HYDROX/SIMETH 30 ML UDC PO PRN (19:00)
[2024-08-05 22:30] VITALS: BP 141/94; TEMP 98.3; O2SAT 100
[2024-08-05] MEDS: IV NS 0.9% 1,000 ML IV PRN (23:42)
[2024-08-06] VITALS (8 sets, daily range): BP systolic 112–154; BP diastolic 64–84; TEMP 97.3–97.9; O2SAT 98–100
[2024-08-06 06:57] LABS: BASOPHILS % (AUTO) 0.7 % (0.0-2.0); EOSINOPHILS # (AUTO) 0.2 K/uL (0.0-0.7); EOSINOPHILS % (AUTO) 3.7 % (0.0-6.0); HEMATOCRIT 37 % (33-45); HEMOGLOBIN 12.5 g/dL (11.5-14.8); LYMPHOCYTES % (AUTO) 30.1 % (20.0-44.0); MEAN CORPUSCULAR HEMOGLOBIN 31 PG (26.0-33.0); MEAN CORPUSCULAR HGB CONC 34 g/dl (31.0-36.0); MEAN CORPUSCULAR VOLUME 91 fL (82-100); MONOCYTES # (AUTO) 0.6 K/uL (0.1-1.30); MONOCYTES % (AUTO) 9.1 % (2.0-12.0); NEUTROPHILS # (AUTO) 3.7 K/uL (1.8-8.9); NEUTROPHILS % (AUTO) 56.4 % (43.0-81.0); PLATELET COUNT (AUTO) 212 K/uL (150-450); RED BLOOD CELL COUNT(AUTO) 4.06 MIL/uL (4.0-5.2); RED CELL DISTRIBUTION WIDTH 14.3 % (11.5-15.0); WHITE BLOOD COUNT (AUTO) 6.6 K/uL (4.3-11.0)
[2024-08-06 07:06] LABS: CALCIUM, SERUM 8.4 mg/dL (8.5-10.1); CREATININE 0.6 mg/dL (0.6-1.3); MAGNESIUM 2.3 mg/dL (1.8-2.4); POTASSIUM 4.1 mmol/L (3.5-5.1)
[2024-08-06] MEDS: DOCUSATE SODIUM 100 MG CAPSULE PO SCH (17:00)
[2024-08-06] MEDS: ALBUTEROL FS 2.5 MG/3 ML VIAL.NEB NEB SCH (20:18)
[2024-08-06] MEDS: IPRATROPIUM NEB FS 0.5 MG/2.5 ML AMPUL.NEB NEB SCH (20:18)
[2024-08-07] VITALS (14 sets, daily range): BP systolic 99–131; BP diastolic 58–82; TEMP 97.5–97.8; O2SAT 92–100
[2024-08-07] MEDS: LEVOTHYROXINE SODIUM 50 MCG TABLET PO SCH (07:30)
[2024-08-07] MEDS: FERROUS SULFATE (325 MG) 325 MG/TAB TABLET PO SCH (08:51)
[2024-08-07] MEDS: PANTOPRAZOLE 40 MG TABLET.DR PO SCH (08:52)
[2024-08-07] MEDS: MULTIVIT W/MINERALS 1 TAB TABLET PO SCH (08:52)
[2024-08-07] MEDS: ASCORBIC ACID 500 MG TABLET PO SCH (08:52)
[2024-08-07] MEDS ORDERED: Medication Not On Formulary EA (Cholecalciferol (Vitamin D3) (Vitamin D3) 50,000 UNIT) PO SCH (09:00)
[2024-08-08] VITALS (8 sets, daily range): BP systolic 104–138; BP diastolic 55–89; TEMP 97.5–97.7; O2SAT 96–99
== END 2024-08-08 13:00 | DRG 74 ==
LOC: ER 16:43 → TELE1 21:58
PROVIDERS: ADMIT Internal Medicine; ATTEND Internal Medicine
DX: G90.89 Other disorders of autonomic nervous system (principal); N18.9 Chronic kidney disease, unspecified; I12.9 Hypertensive chronic kidney disease with stage 1 through stage 4 chronic kidney disease, or unspecified chronic kidney disease; F03.90 Unspecified dementia, unspecified severity, without behavioral disturbance, psychotic disturbance, mood disturbance, and anxiety; I48.91 Unspecified atrial fibrillation; I25.2 Old myocardial infarction; E78.5 Hyperlipidemia, unspecified; M19.90 Unspecified osteoarthritis, unspecified site; F41.9 Anxiety disorder, unspecified; Z87.440 Personal history of urinary (tract) infections; Z86.79 Personal history of other diseases of the circulatory system; K21.9 Gastro-esophageal reflux disease without esophagitis; M50.322 Other cervical disc degeneration at C5-C6 level; F32.A Depression, unspecified; E03.9 Hypothyroidism, unspecified; Z79.01 Long term (current) use of anticoagulants; R13.10 Dysphagia, unspecified; Z79.51 Long term (current) use of inhaled steroids; Z79.890 Hormone replacement therapy; Z79.899 Other long term (current) drug therapy
CPT/HCPCS: 36415; 70450-TC; 71045-TC; 80048-TC; 80076-TC; 82962-TC; 83735-TC; 84100-TC; 84443-TC; 84484-TC; 85025-TC; 94761-TC; 94799-TC; A4223; G0378; J7030